=== PATIENT | female | born 1950 | race Caucasian/White ===

== ENCOUNTER → 2016-10-27 | Outpatient (CLI) | payer OTHER ==
[~2016-10-27] MED LIST: ACTOS15 MG; ALPR0.5T7 PO; ALPR0.5T72; ASCO-262 PO; ASP325T; ASPI-808 PO; ASPI-999 PO; CALC-17 PO; CIPR-225 PO; CPR500T PO; DICY20TA57 PO; DOCU-143 PO; DULO30CA; FURO40TA4; HYDR-3812 PO; HYOS0.1217 PO; LEVO500T2 PO; LISI20TA PO; METO100T5 PO; METR500T PO; MICO1KIT8 VG; MTF500T PO; MULT-963 PO; POTA20PA3; PREG100C22 PO; PRM25T PO; SIMV20TA3 PO; TPR25T PO; ZOLP5TAB6 PO
[2016-10-27 15:30] LABS: BASOPHILS % (AUTO) 0 % (0-10); EOSINOPHILS % (AUTO) 0 % (0-10); LYMPHOCYTES # (AUTO) 1.6 X 10^3 (1.0-4.0); LYMPHOCYTES % (AUTO) 15 % (12-44); MEAN CORPUSCULAR HEMOGLOBIN 30 PG (25-34); MEAN CORPUSCULAR HGB CONC 32 G/DL (32-36); MEAN CORPUSCULAR VOLUME 93 FL (80-99); MEAN PLATELET VOLUME 10.8 FL (7.4-10.4); MONOCYTES # (AUTO) 0.6 X 10^3 (0.0-1.0); MONOCYTES % (AUTO) 6 % (0-12); NEUTROPHILS # (AUTO) 8.6 X 10^3 (1.8-7.8); NEUTROPHILS % (AUTO) 80 % (42-75); PLATELET COUNT 317 10^3/uL (130-400); RED BLOOD COUNT 4.71 10^6/uL (4.35-5.85); RED CELL DISTRIBUTION WIDTH 13.6 % (10.0-14.5); WHITE BLOOD COUNT 10.9 10^3/uL (4.3-11.0)
[2016-10-27 16:02] LABS: ERYTHROCYTE SEDIMENTATION RATE 12 MM/HR (0-30)
== END ==
LOC: LAB 13:04
PROVIDERS: ATTEND Podiatrist Foot & Ankle Surgery
DX: R60.9 Edema, unspecified (principal); R52 Pain, unspecified
CPT/HCPCS: 36415; 82607; 84550; 85025; 85652; 86038; 86430

== ENCOUNTER → 2016-12-31 | Outpatient (CLI) | payer OTHER ==
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
--- NOTE | 2016-12-31 11:45 | Diagnostic Imaging Report ---
Two views of the left hip. INDICATION: Left hip pain. FINDINGS: There is mild subchondral sclerosis seen in the left hip. Mild subchondral sclerosis also in the left SI joint is seen with inferior spurring noted. There is ossification near the tendinous insertion along the greater trochanters. No acute fractures. IMPRESSION: Degenerative changes. No acute process. Dictated by: Dictated on workstation # [id number]
--- NOTE | 2016-12-31 11:51 | Diagnostic Imaging Report ---
Five views of the lumbar spine. INDICATION: Left hip pain and back pain. FINDINGS: There is a grade 1 spondylolisthesis of L4 over L5. No associated pars defect or fracture is evident on the oblique views, although the evaluation is somewhat limited by the adjacent sclerotic degenerative changes around the lower lumbar spine facet joints. The vertebral body heights are preserved. There is mild disc height loss at the L4/L5 level. Mild anterior osteophytes around the mid lumbar spine is seen. No posterior osteophytes are evident. There are ysgo-ut-[id number] degenerative changes in the SI joints. Calcifications in the pelvis suggestive of phleboliths seen. Surgical clips in the right side of the pelvis and in the upper right abdomen are seen. IMPRESSION: Grade 1 spondylolisthesis of L4 over L5 associated with disc height loss is seen. There are also degenerative sclerotic changes in the lower lumbar spine facet joints. Dictated by: Dictated on workstation # [id number]
== END ==
LOC: RAD 11:01
PROVIDERS: ATTEND Nurse Practitioner Adult Health
DX: S09.90XA Unspecified injury of head, initial encounter (principal); M16.12 Unilateral primary osteoarthritis, left hip; M43.16 Spondylolisthesis, lumbar region; R11.10 Vomiting, unspecified; R51 Headache; X58.XXXA Exposure to other specified factors, initial encounter; Y99.8 Other external cause status
CPT/HCPCS: 70450; 72110; 73502

== ENCOUNTER 2017-02-23 03:51 | Emergency (ER) | payer OTHER ==
[~2017-02-23] VITALS: Ht 162.6 cm; Wt 127.0 kg
[2017-02-23] MEDS ORDERED: LACTATED RINGERS 1,000 ML IV ONE (04:10)
[2017-02-23] MEDS ORDERED: KETOROLAC 30 MG/ML VIAL IVP STA (04:10)
[2017-02-23] MEDS ORDERED: ONDANSETRON 4 MG/2 ML (SDV) Z0FRAN IVP ONE (04:15)
[2017-02-23 04:16] LABS: BILIRUBIN,URINE NEGATIVE (NEGATIVE); KETONES,URINE NEGATIVE (NEGATIVE); LEUKOCYTE ESTERASE ,URINE 3+ (NEGATIVE); NITRITE,URINE NEGATIVE (NEGATIVE); PH,URINE 8 (5-9); PROTEIN,URINE NEGATIVE (NEGATIVE); UROBILINOGEN,URINE NORMAL (NORMAL)
[2017-02-23 04:25] LABS: BASOPHILS # (AUTO) 0.1 10^3/uL (0.0-0.1); BASOPHILS % (AUTO) 1 % (0-10); EOSINOPHILS # (AUTO) 0.1 10^3/uL (0.0-0.3); EOSINOPHILS % (AUTO) 1 % (0-10); LYMPHOCYTES # (AUTO) 1.2 X 10^3 (1.0-4.0); LYMPHOCYTES % (AUTO) 11 % (12-44); MEAN CORPUSCULAR HEMOGLOBIN 30 PG (25-34); MEAN CORPUSCULAR HGB CONC 32 G/DL (32-36); MEAN CORPUSCULAR VOLUME 93 FL (80-99); MEAN PLATELET VOLUME 10.4 FL (7.4-10.4); MONOCYTES # (AUTO) 0.8 X 10^3 (0.0-1.0); MONOCYTES % (AUTO) 7 % (0-12); NEUTROPHILS # (AUTO) 8.9 X 10^3 (1.8-7.8); NEUTROPHILS % (AUTO) 81 % (42-75); PLATELET COUNT 234 10^3/uL (130-400); RED BLOOD COUNT 4.77 10^6/uL (4.35-5.85); RED CELL DISTRIBUTION WIDTH 13.3 % (10.0-14.5); WHITE BLOOD COUNT 10.9 10^3/uL (4.3-11.0)
[2017-02-23 04:25] LABS: WBC,URINE 0-2 /HPF
[2017-02-23 04:26] LABS: SQUAMOUS EPITHELIAL CELL,UR RARE /HPF
--- NOTE | 2017-02-23 04:28 | ED Abdominal Pain ---
General Chief Complaint: Abdominal/GI Problems Stated Complaint: ABD PAIN,RT SIDE TO BACK,POSS KIDNEY STONES Source of Information: Patient History of Present Illness Time Seen By Provider: 04:10 Initial Comments PT ARRIVES VIA POV IN AN ELECTRIC WHEELCHAIR FROM HOME C/O SUDDEN ONSET OF DIFFUSE LOWER ABDOMINAL PAIN--WORSE ON RIGHT SIDE-- RADIATING TO RIGHT FLANK. PAIN BEGAN AT 2100 TONIGHT WHILE LAYING ON COUCH + NAUSEA, NO VOMITING NO FEVER NO URINARY SYMPTOMS HAD NORMAL BM X 3 SYMPTOMS WORSE WITH LAYING DOWN. NOTHING IMPROVES PAIN HAS NOT TAKEN ANYTHING FOR PAIN HAS HISTORY OF UTI'S AND KIDNEY STONES, BUT THIS IS NOT EXACTLY THE SAME WHEN SHE HAS HAD KIDNEY STONE IN THE PAST. PCP: DR. IYER/[facility] UROLOGIST: VIDAL COLES Allergies and Home Medications Allergies Coded Allergies: codeine (Unverified Adverse Reaction, Intermediate, 10/08/12) Home Medications Alprazolam 0.5 Mg Tablet, 0.5 MG PO TID PRN for ANXIETY, (Reported) Ascorbate Calcium 500 Mg Tablet, 500 MG PO BID, (Reported) Aspirin 81 Mg Tab.chew, 81 MG PO, (Reported) Calcium/Magnesium/Zinc 1 Each Tablet, 1 TAB PO DAILY, (Reported) Ciprofloxacin HCl 500 Mg Tablet, 500 MG PO BID, #14 Prescribed by: JESSI CASTRO on 02/14/161536 Ciprofloxacin HCl 500 Mg Tablet, 500 MG PO BID, #20 Prescribed by: SHERI GLASS on 02/23/1722 Docusate Sodium 100 Mg Capsule, 100 MG PO BID, #60 Prescribed by: JESSI CASTRO on 02/14/161536 Hydrocodone/Acetaminophen 1 Each Tablet, 1 EACH PO Q4H PRN for PAIN, #30 Prescribed by: JESSI CASTRO on 02/14/161536 Hydrocodone/Ibuprofen 1 Each Tablet, 1-2 EACH PO Q4H, #20 Prescribed by: SHERI GLASS on 02/23/1722 Lisinopril 20 Mg Tablet, 20 MG PO DAILY, (Reported) Metformin Hcl 500 Mg Tablet, 500 MG PO BID WITH MEALS, (Reported) Metoprolol Succinate 100 Mg Tab.sr.24h, 50 MG PO DAILY, (Reported) Metronidazole 500 Mg Tablet, 500 MG PO TID, #21 Prescribed by: JESSI CASTRO on 02/14/16 1537 Multivitamin 1 Each Tablet, 1 TAB PO DAILY, (Reported) Ondansetron 4 Mg Tab.rapdis, 4 MG PO Q4H, #10 Prescribed by: SHERI GLASS on 02/23/17521 Pregabalin 100 Mg Capsule, 100 MG PO BID, (Reported) Promethazine Hcl 25 Mg Tablet, 25 MG PO Q6H PRN for NAUSEA/VOMITING, (Reported) Simvastatin 20 Mg Tablet, 20 MG PO HS, (Reported) Tamsulosin HCl 0.4 Mg Cap, 0.4 MG PO DAILY, #10 Prescribed by: SHERI GLASS on 02/23/17 0522 Topiramate 25 Mg Tab, 75 MG PO DAILY, (Reported) TAKES 3 (25 MG) TABLETS Review of Systems Constitutional: no symptoms reported Respiratory: No Symptoms Reported Cardiovascular: No Symptoms Reported Gastrointestinal: See HPI, Abdominal Pain, Denies Constipated, Denies Diarrhea , Nausea, Denies Vomiting Genitourinary: Flank Pain Musculoskeletal: see HPI, back pain Skin: no symptoms reported Psychiatric/Neurological: No Symptoms Reported Endocrine: No Symptoms Reported Past Dmzyagx-Soecol-Jtpxnf Hx Patient Social History Alcohol Use: Denies Use Recreational Drug Use: No Smoking Status: Never a Smoker Recent Foreign Travel: No Contact w/Someone Who Travel: No Recent Hopitalizations: Yes ( 2016- KIDNEY INFECTION AND ECHOLI. ) Immunizations Up To Date Tetanus Booster (TDap): Unknown Date of Influenza Vaccine: Apr 20, 2015 Seasonal Allergies Seasonal Allergies: No Surgeries History of Surgeries: Yes (HYST/BSO; CARDIAC CATH--NO INTERVENTION; ECTOPIC X 2 ; LITHOTRIPSY) Surgeries: Appendectomy, Gallbladder, Hysterectomy, Oophorectomy, Renal Respiratory History of Respiratory Disorde: Yes Respiratory Disorders: Chronic Bronchitis, Sleep Apnea Cardiovascular History of Cardiac Disorders: Yes (CARDIAC CATH--NO INTERVENTION; CHF) Cardiac Disorders: Atrial Fibrillation, High Cholesterol, Hypertension Neurological History of Neurological Disord: Yes Neurological Disorders: Headaches /Migraines 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 System Hx 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 Disorders: 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 X 2) 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, Menopausal Genitourinary History of Genitourinary Disor: Yes Genitourinary Disorders: Kidney Infection, Bladder Infection, Kidney Stones Gastrointestinal History of Gastrointestinal Di: Yes (INCIDIENTAL FINDING OF DIVERTICULOSIS FOUND ON CT--NO HX OF ACUTE DIVERTICULITIS) Gastrointestinal Disorders: Gastroesophageal Reflux, Diverticulosis, Gall Bladder Disease Musculoskeletal History of Musculoskeletal Dis: Yes (FREQUENT FALLS, "BAD KNEES" AND USES ELECTRIC WHEELCHAIR FOR AMBULATION) Musculoskeletal Disorders: Arthritis, Fibromyalgia Endocrine History of Endocrine Disorders: Yes (MORBID OBESITY) Endocrine Disorders: Diabetes, Non-Insulin dep HEENT History of HEENT Disorders: No Cancer History of Cancer: No Psychosocial History of Psychiatric Problem: Yes Behavioral Health Disorders: Anxiety, Bipolar, Depression Integumentary History of Skin or Integumenta: No Blood Transfusions History of Blood Disorders: No Family Medical History Significant Family History: No Pertinent Family Hx Family Medial History: Arthritis 19 MOTHER Cardiovascular disease 19 FATHER Diabetes mellitus 19 FATHER G8 BROTHER Hypercholesterolemia 19 MOTHER Hypertension 19 FATHER 19 MOTHER Kidney disease 19 MOTHER Myocardial infarction 19 FATHER Physical Exam Vital Signs VS - Last 72 Hours, by Label 02/23/17 02/23/17 03:56 04:34 Temp 97.7 97.7 Pulse 70 Resp 20 B/P (MAP) 150/114 Pulse Ox 99 O2 Delivery Room Air Capillary Refill : General Appearance: no apparent distress, obese, other (SOMEWHAT FLAT AFFECT. DOES NOT APPEAR TO BE IN ANY DISCOMFORT ) Respiratory: normal breath sounds, no respiratory distress, no accessory muscle use Cardiovascular: regular rate, rhythm, no murmur Gastrointestinal: soft, no organomegaly, tenderness (MILD DIFFUSE LOWER ABDOMINAL TENDERNESS AND RIGHT FLANK TENDERNESS) Extremities: normal inspection, normal capillary refill Back: CVA tenderness (R) Neurologic/Psychiatric: speech therapy teacher II-XII nml as tested, no motor/sensory deficits, alert, oriented x 3 Skin: normal color, warm/dry Progress/Results/Core Measures Results/Orders Lab Results Laboratory Tests Test 02/23/17 04:02 02/23/17 04:17 Range/Units Urine Color YELLOW Urine Clarity VERY CLOUDY H Urine pH 8 5-9 Urine Specific [place] 1.015 L 1.016-1.022 Urine Protein NEGATIVE NEGATIVE Urine Glucose (UA) NEGATIVE NEGATIVE Urine Ketones NEGATIVE NEGATIVE Urine Nitrite NEGATIVE NEGATIVE Urine Bilirubin NEGATIVE NEGATIVE Urine Urobilinogen NORMAL NORMAL MG/DL Urine Leukocyte Esterase 3+ H NEGATIVE Urine RBC (Auto) 1+ H NEGATIVE Urine RBC 0-2 /HPF Urine WBC 0-2 /HPF Urine Squamous Epithelial Cells RARE /HPF Urine Crystals PRESENT H /LPF Urine Amorphous Sediment LARGE CHASTITY PHOSPHATE H /LPF Urine Bacteria TRACE /HPF Urine Casts NONE /LPF Urine Mucus NEGATIVE /LPF Urine Culture Indicated NO White Blood Count 10.9 4.3-11.0 10^3/uL Red Blood Count 4.77 4.35-5.85 10^6/uL Hemoglobin 14.3 11.5-16.0 G/DL Hematocrit 44 35-52 % Mean Corpuscular Volume 93 80-99 FL Mean Corpuscular Hemoglobin 30 25-34 PG Mean Corpuscular Hemoglobin Concent 32 32-36 G/DL Red Cell Distribution Width 13.3 10.0-14.5 % Platelet Count 234 130-400 10^3/uL Mean Platelet Volume 10.4 7.4-10.4 FL Neutrophils (%) (Auto) 81 H 42-75 % Lymphocytes (%) (Auto) 11 L 12-44 % Monocytes (%) (Auto) 7 0-12 % Eosinophils (%) (Auto) 1 0-10 % Basophils (%) (Auto) 1 0-10 % Neutrophils # (Auto) 8.9 H 1.8-7.8 X 10^3 Lymphocytes # (Auto) 1.2 1.0-4.0 X 10^3 Monocytes # (Auto) 0.8 0.0-1.0 X 10^3 Eosinophils # (Auto) 0.1 0.0-0.3 10^3/uL Basophils # (Auto) 0.1 0.0-0.1 10^3/uL Sodium Level 140 135-145 MMOL/L Potassium Level 4.5 3.6-5.0 MMOL/L Chloride Level 107 98-107 MMOL/L Carbon Dioxide Level 23 21-32 MMOL/L Anion Gap 10 5-14 MMOL/L Blood Urea Nitrogen 26 H 7-18 MG/DL Creatinine 1.29 0.60-1.30 MG/DL Estimat Glomerular Filtration Rate 42 BUN/Creatinine Ratio 20 Glucose Level 123 H 70-105 MG/DL Calcium Level 9.1 8.5-10.1 MG/DL Total Bilirubin 0.4 0.1-1.0 MG/DL Aspartate Amino Transf (AST/SGOT) 17 5-34 U/L Alanine Aminotransferase (ALT/SGPT) 12 0-55 U/L Alkaline Phosphatase 49 40-136 U/L Total Protein 6.2 L 6.4-8.2 GM/DL Albumin 3.8 3.2-4.5 GM/DL Amylase Level 38 25-125 U/L Lipase 80 H 8-78 U/L My Orders Orders - SHERI GLASS DO Ct Abd/Pelvis Wo(Kidney Stone) (02/23/17 04:10) Amylase (02/23/17 04:10) Cbc With Automated Diff (02/23/17 04:10) Comprehensive Metabolic Panel (02/23/17 04:10) Lipase (02/23/17 04:10) Ua Culture If Indicated (02/23/17 04:10) Acute Abd Series (02/23/17 04:10) Saline Lock/Iv-Start (02/23/17 04:10) Ondansetron Injection (Zofran Injectio (02/23/17 04:15) Saline Lock/Iv-Start (02/23/17 04:10) Lactated Ringers (Lr 1000 Ml Iv Solution (02/23/17 04:10) Ketorolac Injection (Toradol Injection) (02/23/17 04:10) Alfuzosin Tablet (Uroxatral Tablet) (02/23/17 05:30) Rx-Ondansetron Po (Rx-Zofran Po) (02/23/17 05:16) Rx-Hydrocodone/Apap 5-325 Mg (Rx-Vicodin (02/23/17 05:30) Levofloxacin Tablet (Levaquin Tablet) (02/23/17 05:30) Medications Given in ED Current Medications Medications Dose Ordered Sig/Gerardo Route Start Time Stop Time Status Last Admin Dose Admin Lactated Ringer's 1,000 ml @ 0 mls/hr Q0M ONCE IV 02/23/17 04:10 02/23/17 04:13 DC 02/23/17 04:34 999 MLS/HR Ondansetron HCl 4 mg ONCE ONCE IVP 02/23/17 04:15 02/23/17 04:16 DC 02/23/17 04:34 4 MG Vital Signs/I&O Vital Sign - Last 12Hours 02/23/17 02/23/17 03:56 04:34 Temp 97.7 97.7 Pulse 70 Resp 20 B/P (MAP) 150/114 Pulse Ox 99 O2 Delivery Room Air Progress Note : Progress Note PAIN AND NAUSEA EASED WITH MEDICATIONS Diagnostic Imaging Comments ACUTE ABDOMEN XRAYS--NO ACUTE PROCESS, PENDING RADIOLOGIST REVIEW CT ABDOMEN/PELVIS--4 MM RIGHT PROXIMAL URETERAL STONE WITH MILD/MODERATE HYDRONEPHROSIS WITH PERINEPHRIC FAT STRANDING. DIVERTICULOSIS-NO ACUTE DIVERTICULITIS--PER [facility] VIA FAX @ [id number] Reviewed: Reviewed by Me Departure Impression Impression: Primary Impression: Calculus of proximal right ureter Disposition: HOME, SELF-CARE Condition: Improved Departure-Patient Inst. Referrals: GÓMEZ LI MD (PCP/Family) Primary Care Physician Patient Instructions: Kidney Stones (DC) Add. Discharge Instructions: STRAIN ALL URINE--RETURN ANY STONES TO YOUR UROLOGIST'S OFFICE LOTS OF CLEAR LIQUIDS FOLLOW UP WITH DR. PANDEY THIS WEEK FOR FURTHER CARE--CALL TODAY FOR APPOINTMENT. BRING COPIES OF CT SCAN AND XRAYS WITH YOU RETURN TO ER IF WORSE All discharge instructions reviewed with patient and/or family. Voiced understanding. Scripts Tamsulosin HCl (Flomax) 0.4 Mg Cap 0.4 MG PO DAILY, #10 CAP Prov: SHERI GLASS K DO 02/23/17 Hydrocodone/Ibuprofen (Hydrocodone-Ibuprofen 7.5-200) 1 Each Tablet 1-2 EACH PO Q4H for Pain, #20 TAB Prov: ENRRIQUE GLASSA K DO 02/23/17 Ondansetron (Zofran Odt) 4 Mg Tab.rapdis 4 MG PO Q4H for Nausea/Vomiting, #10 TAB Prov: SHERI GLASS K DO 02/23/17 Ciprofloxacin HCl (Cipro) 500 Mg Tablet 500 MG PO BID, #20 TAB Prov: ENRRIQUE GLASSA K DO 02/23/17 SHERI GLASS DO Feb 23, 2017 04:27
[2017-02-23 04:45] LABS: ALBUMIN 3.8 GM/DL (3.2-4.5); BILIRUBIN,TOTAL 0.4 MG/DL (0.1-1.0); CALCIUM 9.1 MG/DL (8.5-10.1); CREATININE SERUM 1.29 MG/DL (0.60-1.30); POTASSIUM 4.5 MMOL/L (3.6-5.0); TOTAL PROTEIN 6.2 GM/DL (6.4-8.2)
[2017-02-23] MEDS ORDERED: RX-ONDANSETRON 4 MG ODT (ZOFRAN) PPK #4 PO STA (05:16)
[2017-02-23] MEDS ORDERED: CIPR-225 PO (05:22)
[2017-02-23] MEDS ORDERED: TAMS0.4C98 PO (05:22)
[2017-02-23] MEDS ORDERED: HYDR-87 PO (05:22)
[2017-02-23] MEDS ORDERED: ONDA4TAB8 PO (05:22)
[2017-02-23] MEDS ORDERED: LEVOFLOXACIN 500 MG TAB (LEVAQUIN) PO ONE (05:30)
[2017-02-23] MEDS ORDERED: RX-HYDROCODONE/APAP 5/325 MG #4 TAB PK PO PRN (05:30)
[2017-02-23] MEDS ORDERED: ALFUZOSIN HCL 10 MG TAB (UROXATRAL) PO SCH (05:30)
[2017-02-23 05:40] VITALS: BP 139/70
--- NOTE | 2017-02-23 06:13 | Diagnostic Imaging Report ---
INDICATION: Right flank pain. COMPARISON: CT abdomen and pelvis from the same day FINDINGS: Supine and upright views of the abdomen show a nondistended bowel gas pattern. No abnormal air fluid levels or free intraperitoneal air is seen. Patient's known right-sided renal calculi are essentially inconspicuous on this exam. There is a subtle punctate extraosseous calcification projecting over the lateral margins of the psoas muscle at the L2-L3 intervertebral disc space level, which may correspond to ureteral calculus seen on separately performed CT abdomen. Bony and soft tissue structures are within normal limits. No organomegaly is identified. Accompanying upright chest shows normal heart size and pulmonary vascularity. The lungs are well aerated and clear. The mediastinum is normal in appearance. IMPRESSION: 1. Punctate extraosseous calcification overlying the right psoas muscle as described above. This may correspond to patient's known ureteral calculus. Right-sided renal calculi remain inconspicuous. 2. Normal chest. No pneumonia or pulmonary edema. Dictated by: Dictated on workstation # [id number]
--- NOTE | 2017-02-23 06:45 | Diagnostic Imaging Report ---
PROCEDURE: CT urinary tract, rule out kidney stone. TECHNIQUE: Multiple contiguous axial images were obtained through the abdomen and pelvis without the use of intravenous contrast. INDICATION: Right flank pain. COMPARISON: 02/14/2016. FINDINGS: Included portions of the lung bases are clear. Note is made of moderate calcified coronary artery atherosclerosis. CT abdomen: Small 4-mm calculus is identified within the proximal right ureter near the UPJ. As a result, there is moderate proximal hydronephrosis. Multiple additional nonobstructive renal calculi are also seen within the inferior pole on the right. There is also asymmetric stranding of the perirenal fat on the right. No renal or ureteral calculi are seen on the left. Additionally, there is no hydroureteronephrosis or other evidence of obstruction on the left. No renal parenchymal mass-type lesions are seen on this noncontrast exam. The liver, spleen, pancreas, and adrenal glands have an unremarkable noncontrast CT appearance. Small bowel loops are nondistended. Normal appendix cannot be adequately identified but appears to be surgically absent. There is no loculated fluid collection, free fluid, or free air within the abdomen. There is mild/ moderate calcified aortic and arterial atherosclerosis. Bony structures show no acute abnormalities. CT pelvis: Urinary bladder is unopacified and essentially decompressed. No calculi are seen within the urinary bladder. There is colonic diverticulosis but no CT evidence of acute diverticulitis. Low-density rounded structure is identified in the right adnexa and measures 3.5 x 4.1 cm. This is stable when compared to 02/14/2016. There is no loculated fluid collection, free fluid, or free air within the pelvis. No abnormal lymph nodes are seen. Bony structures show no acute abnormalities. IMPRESSION: 1. A 4-mm calculus within the proximal right ureter near the UVJ resulting in moderate proximal hydronephrosis. 2. Multiple additional nonobstructive right renal calculi. 3. Colonic diverticulosis but no CT evidence of acute diverticulitis. 4. Stable probable cystic structure in the right adnexa. This may be ovarian in nature. Given patient's likely postmenopausal status, further characterization with dedicated pelvic sonogram is recommended and could be performed on a nonemergent basis. Dictated by: Dictated on workstation # [id number]
== END 2017-02-23 05:40 | disposition home or self-care (01) ==
LOC: EDUNIT# 03:51 → ER 03:56
DX: N20.1 Calculus of ureter (principal); G47.30 Sleep apnea, unspecified; I11.0 Hypertensive heart disease with heart failure; I50.9 Heart failure, unspecified; I48.91 Unspecified atrial fibrillation; E78.00 Pure hypercholesterolemia, unspecified; G43.909 Migraine, unspecified, not intractable, without status migrainosus; K21.9 Gastro-esophageal reflux disease without esophagitis; M19.90 Unspecified osteoarthritis, unspecified site; E66.01 Morbid (severe) obesity due to excess calories; E11.9 Type 2 diabetes mellitus without complications; F41.9 Anxiety disorder, unspecified; F31.9 Bipolar disorder, unspecified; Z87.19 Personal history of other diseases of the digestive system; Z87.440 Personal history of urinary (tract) infections; Z87.442 Personal history of urinary calculi; Z79.82 Long term (current) use of aspirin; Z90.710 Acquired absence of both cervix and uterus; Z82.49 Family history of ischemic heart disease and other diseases of the circulatory system
CPT/HCPCS: 36415; 74022; 74176; 80053; 81000; 82150; 83690; 85025; 96361; 96374; 96375

== ENCOUNTER → 2017-08-18 | Outpatient (CLI) | payer OTHER ==
[~2017-08-18] MED LIST changes: +ACHD5005 PO; -HYDR-3812 PO; +HYDR-87 PO; +ONDA4TAB8 PO; +TAMS0.4C98 PO
[2017-08-18 11:16] LABS: ALANINE AMINOTRANSFERASE 19 U/L (0-55); ALBUMIN 3.6 GM/DL (3.2-4.5); ALKALINE PHOSPHATASE 40 U/L (40-136); BILIRUBIN,TOTAL 0.4 MG/DL (0.1-1.0); BUN/CREATININE RATIO 30; CALCIUM 8.9 MG/DL (8.5-10.1); CARBON DIOXIDE 20 MMOL/L (21-32); CHLORIDE 107 MMOL/L (98-107); CHOLESTEROL 204 MG/DL (< 200); CREATININE SERUM 0.82 MG/DL (0.60-1.30); GFR ESTIMATED > 60; GLUCOSE 110 MG/DL (70-105); HDL CHOLESTEROL 35 MG/DL (40-60); POTASSIUM 4.4 MMOL/L (3.6-5.0); SODIUM 139 MMOL/L (135-145); TOTAL PROTEIN 5.9 GM/DL (6.4-8.2); TRIGLYCERIDES 159 MG/DL (<150); VLDL CHOLESTEROL 32 MG/DL (5-40)
== END ==
LOC: CARD 09:53
PROVIDERS: ATTEND Internal Medicine Cardiovascular Disease
DX: I48.91 Unspecified atrial fibrillation (principal); E11.9 Type 2 diabetes mellitus without complications; E78.5 Hyperlipidemia, unspecified; I10 Essential (primary) hypertension; R00.2 Palpitations
CPT/HCPCS: 36415; 80053; 80061; 93306

== ENCOUNTER 2017-11-24 18:53 | Observation (INO) | payer MEDICARE, OTHER ==
[~2017-11-24] VITALS: Ht 162.6 cm; Wt 128.0 kg
[2017-11-24] MEDS ORDERED: ASPIRIN 81 MG CHEW (CHILDREN'S ASA) PO ONE (19:00)
[2017-11-24 19:23] LABS: BASOPHILS % (AUTO) 1 % (0-10); EOSINOPHILS # (AUTO) 0.1 10^3/uL (0.0-0.3); EOSINOPHILS % (AUTO) 2 % (0-10); HEMATOCRIT 44 % (35-52); HEMOGLOBIN 14.3 G/DL (11.5-16.0); LYMPHOCYTES % (AUTO) 35 % (12-44); MEAN CORPUSCULAR HEMOGLOBIN 30 PG (25-34); MEAN CORPUSCULAR HGB CONC 33 G/DL (32-36); MEAN CORPUSCULAR VOLUME 91 FL (80-99); MEAN PLATELET VOLUME 10.3 FL (7.4-10.4); MONOCYTES # (AUTO) 0.8 X 10^3 (0.0-1.0); MONOCYTES % (AUTO) 9 % (0-12); NEUTROPHILS # (AUTO) 4.6 X 10^3 (1.8-7.8); NEUTROPHILS % (AUTO) 54 % (42-75); PLATELET COUNT 272 10^3/uL (130-400); RED BLOOD COUNT 4.78 10^6/uL (4.35-5.85); RED CELL DISTRIBUTION WIDTH 13.8 % (10.0-14.5); WHITE BLOOD COUNT 8.6 10^3/uL (4.3-11.0)
--- NOTE | 2017-11-24 19:26 | Diagnostic Imaging Report ---
INDICATION: Chest pain. Comparison with 02/23/2017. FINDINGS: Portable chest is well-aerated. There are no infiltrates or masses. Heart is not enlarged. No pulmonary edema. No hilar adenopathy. No pneumothorax or pleural effusion. IMPRESSION: Normal portable chest. Dictated by: Dictated on workstation # [id number]
--- NOTE | 2017-11-24 19:28 | ED Cardiac General ---
History of Present Illness General Chief Complaint: Cardiac/General Problems Stated Complaint: AFIB Nursing Triage Note: patient reports palpitations. patient reports putting a pulse ox on her finger and her HR was ranging between 40 and 80. Patient reports being evaluated by PCP today Source: patient History of Present Illness Date Seen by Provider: Nov 24, 2017 Time Seen by Provider: 18:50 Initial Comments PT ARRIVES VIA POV, IN AN ELECTRIC SCOOTER PT STATES SHE HAS BEEN HAVING PALPITATIONS FOR THE LAST HOUR STATES SHE PUT A PULSE OX ON HER FINGER AND IT READ THAT HER HEART RATE WAS IN THE 40'S STATES SHE HAS INTERMITTENT ATRIAL FIBRILLATION AND USUALLY WHEN SHE GOES INTO A FIB, HER HEART RATE GOES UP--HER HEART RATE HAS NEVER DROPPED LIKE THIS BEFORE UNDERLYING HEART RATE IS IN 80'S STATES WHEN SHE STARTS HAVING THE PALPITATIONS, AND THEN SHE WILL FEEL A FLUTTERING IN HER THROAT AND THEN SHE WILL COUGH AND THAT WILL STOP THE PALPITATIONS. SHE STATES THIS IS THE SAME THING THAT HAS HAPPENED BEFORE SHE GOES INTO ATRIAL FIBRILLATION, BUT HER HEART RATE NEVER WENT FAST AND SHE DOES NOT FEEL LIKE SHE HAS GONE INTO ATRIAL FIBRILLATION TONIGHT + SHORTNESS OF BREATH NO ACTUAL CHEST PAIN NO SWELLING IN LEGS/FEET NO SWEATS NO DIZZINESS NO SYNCOPE OR NEAR-SYNCOPE NO FEVER, COUGH/URI SYMPTOMS OR RECENT ILLNESS NO MEDICATION CHANGES OR MISSED DOSES OF MEDICATIONS PT IS NOT ON ANY ANTI-ARRHYTHMICS--TAKES A BETA MARCELINO PT TAKES ASPIRIN 325 MG, AND IS NOT ON ANY OTHER ANTICOAGULANTS SAW DR. HUDDLESTON, AT [facility] IN [place] TODAY FOR ROUTINE FOLLOW UP ON A RASH THAT SHE HAD, HAS SINCE CLEARED UP. WAS ON PREDNISONE, BUT FINISHED THAT OVER A WEEK AGO. PCP: DR. HUDDLESTON, [facility] SAW TAILER: DR. WALDROP Allergies and Home Medications Allergies Coded Allergies: codeine (Unverified Adverse Reaction, Intermediate, 10/08/12) Home Medications Alprazolam 0.5 Mg Tablet, 0.5 MG PO TID PRN for ANXIETY, (Reported) Ascorbate Calcium 500 Mg Tablet, 500 MG PO BID, (Reported) Calcium/Magnesium/Zinc 1 Each Tablet, 1 TAB PO DAILY, (Reported) Docusate Sodium 100 Mg Capsule, 100 MG PO BID Prescribed by: JESSI CASTRO on 02/14/16 9957 Lisinopril 20 Mg Tablet, 20 MG PO DAILY, (Reported) Metformin Hcl 500 Mg Tablet, 500 MG PO BID WITH MEALS, (Reported) Metoprolol Succinate 100 Mg Tab.sr.24h, 50 MG PO DAILY, (Reported) Multivitamin 1 Each Tablet, 1 TAB PO DAILY, (Reported) Pregabalin 100 Mg Capsule, 100 MG PO BID, (Reported) Simvastatin 20 Mg Tablet, 20 MG PO HS, (Reported) Topiramate 25 Mg Tab, 75 MG PO DAILY, (Reported) TAKES 3 (25 MG) TABLETS Patient Home Medication List Home Medication List Reviewed: Yes Review of Systems Constitutional: No diaphoresis, No dizziness Respiratory: See HPI Cardiovascular: See HPI Gastrointestinal: No Symptoms Reported Genitourinary: No Symptoms Reported Musculoskeletal: no symptoms reported Skin: no symptoms reported Psychiatric/Neurological: No Symptoms Reported Endocrine: No Symptoms Reported Hematologic/Lymphatic: No Symptoms Reported Past Knhjezq-Ysmndv-Yshvdj Hx Patient Social History Alcohol Use: Denies Use Recreational Drug Use: No Smoking Status: Never a Smoker 2nd Hand Smoke Exposure: No Recent Foreign Travel: No Contact w/Someone Who Travel: No Recent Infectious Disease Expo: No Recent Hopitalizations: No Immunizations Up To Date Tetanus Booster (TDap): Unknown Date of Influenza Vaccine: Apr 20, 2015 Seasonal Allergies Seasonal Allergies: Yes Past Medical History Surgeries: Yes (HYST/BSO; CARDIAC CATH--NO INTERVENTION; ECTOPIC X 2; LITHOTRIPSY; EGD/COLONOSCOPY) Appendectomy, Gallbladder, Hysterectomy, Oophorectomy, Renal Respiratory: Yes Chronic Bronchitis, Sleep Apnea Cardiac: Yes (CARDIAC CATH--NO INTERVENTION; CHF; INTERMITTENT ATRIAL FIB) Atrial Fibrillation, High Cholesterol, Hypertension Neurological: Yes Headaches /Migraines 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 Disorders: 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 X 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, 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 Genitourinary: Yes Kidney Infection, Bladder Infection, Kidney Stones Gastrointestinal: Yes (INCIDENTAL FINDING OF DIVERTICULOSIS ON CT-NO HX OF ACUTE DIVERTICULITIS) Gastroesophageal Reflux, Diverticulosis, Esophagitis, Gall Bladder Disease Musculoskeletal: Yes (FREQUENT FALLS, "BAD KNEES" AND USES ELECTRIC WHEELCHAIR FOR AMBULATION) Arthritis, Fibromyalgia Endocrine: Yes (MORBID OBESITY) Diabetes, Non-Insulin dep HEENT: No Cancer: No Psychosocial: Yes Anxiety, Bipolar, Depression Integumentary: No Blood Disorders: No Family Medical History Arthritis 19 MOTHER Cardiovascular disease 19 FATHER Diabetes mellitus 19 FATHER G8 BROTHER Hypercholesterolemia 19 MOTHER Hypertension 19 FATHER 19 MOTHER Kidney disease 19 MOTHER Myocardial infarction 19 FATHER No Pertinent Family Hx Physical Exam Vital Signs Vital Signs - First Documented 6/7/18 18:59 Temp 98.2 Pulse 84 Resp 18 B/P (MAP) 195/130 (151) Pulse Ox 98 O2 Delivery Room Air Capillary Refill : Less Than 3 Seconds General Appearance: No Apparent Distress, Anxious, Obese Neck: Normal Inspection; No Carotid Bruit, No JVD Respiratory: Normal Breath Sounds, No Accessory Muscle Use, No Respiratory Distress Cardiovascular: Regular Rate, Rhythm, No Edema, No JVD, No Murmur, Normal Peripheral Pulses Gastrointestinal: Non Tender, Soft Extremity: Normal Capillary Refill, Normal Inspection, Normal Range of Motion, Non Tender, No Calf Tenderness, No Pedal Edema Neurologic/Psychiatric: Alert, Oriented x3, No Motor/Sensory Deficits, 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 Norm as Tested Skin: Normal Color, Warm/Dry Progress/Results/Core Measures Results/Orders Lab Results Laboratory Tests Test 11/24/17 19:15 Range/Units White Blood Count 8.6 4.3-11.0 10^3/uL Red Blood Count 4.78 4.35-5.85 10^6/uL Hemoglobin 14.3 11.5-16.0 G/DL Hematocrit 44 35-52 % Mean Corpuscular Volume 91 80-99 FL Mean Corpuscular Hemoglobin 30 25-34 PG Mean Corpuscular Hemoglobin Concent 33 32-36 G/DL Red Cell Distribution Width 13.8 10.0-14.5 % Platelet Count 272 130-400 10^3/uL Mean Platelet Volume 10.3 7.4-10.4 FL Neutrophils (%) (Auto) 54 42-75 % Lymphocytes (%) (Auto) 35 12-44 % Monocytes (%) (Auto) 9 0-12 % Eosinophils (%) (Auto) 2 0-10 % Basophils (%) (Auto) 1 0-10 % Neutrophils # (Auto) 4.6 1.8-7.8 X 10^3 Lymphocytes # (Auto) 3.0 1.0-4.0 X 10^3 Monocytes # (Auto) 0.8 0.0-1.0 X 10^3 Eosinophils # (Auto) 0.1 0.0-0.3 10^3/uL Basophils # (Auto) 0.0 0.0-0.1 10^3/uL Prothrombin Time 13.1 12.2-14.7 SEC INR Comment 1.0 0.8-1.4 Activated Partial Thromboplast Time 28 24-35 SEC Sodium Level 139 135-145 MMOL/L Potassium Level 4.1 3.6-5.0 MMOL/L Chloride Level 104 98-107 MMOL/L Carbon Dioxide Level 21 21-32 MMOL/L Anion Gap 14 5-14 MMOL/L Blood Urea Nitrogen 25 H 7-18 MG/DL Creatinine 0.92 0.60-1.30 MG/DL Estimat Glomerular Filtration Rate > 60 BUN/Creatinine Ratio 27 Glucose Level 140 H 70-105 MG/DL Calcium Level 9.6 8.5-10.1 MG/DL Magnesium Level 2.1 1.8-2.4 MG/DL Total Bilirubin 0.3 0.1-1.0 MG/DL Aspartate Amino Transf (AST/SGOT) 17 5-34 U/L Alanine Aminotransferase (ALT/SGPT) 13 0-55 U/L Alkaline Phosphatase 44 40-136 U/L Total Creatine Kinase 34 29-168 U/L Creatine Kinase MB 0.6 <6.6 NG/ML Troponin I < 0.30 <0.30 NG/ML B-Type Natriuretic Peptide 13.6 <100.0 PG/ML Total Protein 6.4 6.4-8.2 GM/DL Albumin 3.9 3.2-4.5 GM/DL Amylase Level 40 25-125 U/L Lipase 70 8-78 U/L TSH [place] Testing 1.37 0.35-4.94 UIU/ML My Orders Orders - SHERI GLASS DO Amylase (11/24/17 18:57) Cbc With Automated Diff (11/24/17 18:57) Comprehensive Metabolic Panel (11/24/17 18:57) Creatine Kinase (11/24/17 18:57) Creatine Kinase Mb (11/24/17 18:57) Lipase (11/24/17 18:57) Partial Thromboplastin Time (11/24/17 18:57) Protime With Inr (11/24/17 18:57) Troponin I (11/24/17 18:57) Chest 1 View, Ap/Pa Only (11/24/17 18:57) O2 (11/24/17 18:57) Ekg Tracing (11/24/17 18:57) Aspirin Chewable Tablet (Baby Aspirin Ch (11/24/17 19:00) BNP (11/24/17 18:57) Monitor-Rhythm Ecg Trace Only (11/24/17 18:57) Magnesium (11/24/17 18:57) Thyroid Analyzer (11/24/17 18:57) Vital Signs/I&O 11/24/17 11/24/17 18:59 18:59 Temp 98.2 Pulse 84 Resp 18 B/P (MAP) 195/130 (151) Pulse Ox 98 O2 Delivery Room Air Blood Pressure Mean: 151 Progress Progress Note : Progress Note PT HAD SHORT RUNS OF BIGEMINY DURING ER STAY, AND WHEN THEY OCCUR, PT STATES THIS IS THE SENSATION SHE HAS BEEN HAVING TONIGHT SHE STATES THIS IS WHAT USUALLY HAPPENS JUST BEFORE SHE GOES INTO ATRIAL FIBRILLATION. NO ATRIAL FIBRILLATION DURING ER STAY Initial ECG Impression Date: Nov 24, 2017 Initial ECG Impression Time: 19:02 Initial ECG Rate: 81 Initial ECG Rhythm: Normal Sinus Initial ECG Impression: Nonspecific Changes Diagnostic Imaging Comments CXR--NO ACUTE PROCESS, PER RADIOLOGIST REPORT @ 1928 Reviewed: Reviewed by Me Departure Communication (Admissions) 2039/2041--PAGED/SPOKE WITH DR. HAWKINS. ADVISES TO ADMIT TO HOSPITALIST AND DR. WALDROP OR HE CAN SEE PT IN CONSULT 2043--SPOKE WITH DR. MEDINA, ACCEPTS PT FOR ADMIT. Impression Primary Impression: Palpitations Additional Impressions: History of atrial fibrillation SYMPTOMATIC RUNS OF BIGMENY Disposition: ADMITTED INPATIENT Condition: Stable Admissions Decision to Admit Reason: Admit from ER (General) Decision to Admit/Date: Nov 24, 2017 Time/Decision to Admit Time: 20:45 Departure-Patient Inst. Referrals: TAYE HUDDLESTON MD (PCP) Primary Care Physician GÓMEZ LI MD (Family) Primary Care Physician SHERI GLASS DO Nov 24, 2017 19:28
[2017-11-24 19:35] LABS: PROTHROMBIN TIME PATIENT 13.1 SEC (12.2-14.7)
[2017-11-24 19:45] LABS: ALANINE AMINOTRANSFERASE 13 U/L (0-55); ALBUMIN 3.9 GM/DL (3.2-4.5); ALKALINE PHOSPHATASE 44 U/L (40-136); AMYLASE 40 U/L (25-125); BILIRUBIN,TOTAL 0.3 MG/DL (0.1-1.0); CALCIUM 9.6 MG/DL (8.5-10.1); CARBON DIOXIDE 21 MMOL/L (21-32); CHLORIDE 104 MMOL/L (98-107); CREATINE KINASE 34 U/L (29-168); GLUCOSE 140 MG/DL (70-105); LIPASE 70 U/L (8-78); MAGNESIUM 2.1 MG/DL (1.8-2.4); POTASSIUM 4.1 MMOL/L (3.6-5.0); SODIUM 139 MMOL/L (135-145); TOTAL PROTEIN 6.4 GM/DL (6.4-8.2)
[2017-11-24 20:05] LABS: CREATINE KINASE MB 0.6 NG/ML (<6.6); TSH (THYROID ANALYZER) 1.37 UIU/ML (0.35-4.94)
[2017-11-24 20:23] LABS: BUN/CREATININE RATIO 27; CREATININE SERUM 0.92 MG/DL (0.60-1.30); GFR ESTIMATED > 60
[2017-11-24 21:44] VITALS: BP 144/84
[2017-11-24 22:00] VITALS: BP 136/77
[2017-11-24 22:30] VITALS: BP 143/80
[2017-11-24 23:00] VITALS: BP 115/73
[2017-11-24] MEDS ORDERED: ALPRAZolam 0.5 MG (XANAX) TAB ONE (23:19)
[2017-11-24] MEDS ORDERED: PREGABALIN 100 MG (LYRICA) CAPSULE ONE (23:19)
[2017-11-24] MEDS: PREGABALIN 100 MG (LYRICA) CAPSULE PO SCH (23:22)
[2017-11-24] MEDS ORDERED: ALPRAZolam 0.5 MG (XANAX) TAB PO PRN (23:30)
[2017-11-25] VITALS: BP 109/74
[2017-11-25 04:00] VITALS: BP 100/73
--- NOTE | 2017-11-25 05:26 | Pulmonary Consultation ---
History of Present Illness History of Present Illness Date of Consultation 11/25/17 05:21 Time Seen by Provider: 05:21 Date of Admission History of Present Illness 66yo with hx of STEVE presented to ED secondary palpitations. Pt states she use to use a CPAP however she then lost 100lbs and was told she no longer needs CPAP therapy. SHe has been waking up gasping for air, and waking up with palpitations and migraine HARPER. RN has also noted she becomes hypoxia at night. Pt would like STEVE to be worked up. I explained to her we will have to do this as an outpatient. Allergies and Home Medications Allergies Coded Allergies: codeine (Unverified Adverse Reaction, Intermediate, 10/08/12) Home Medications Alprazolam 0.5 Mg Tablet, 0.5 MG PO TID PRN for ANXIETY, (Reported) Ascorbate Calcium 500 Mg Tablet, 500 MG PO BID, (Reported) Calcium/Magnesium/Zinc 1 Each Tablet, 1 TAB PO DAILY, (Reported) Docusate Sodium 100 Mg Capsule, 100 MG PO BID Prescribed by: JESSI CASTRO on 02/14/16 1537 Lisinopril 20 Mg Tablet, 20 MG PO DAILY, (Reported) Metformin Hcl 500 Mg Tablet, 500 MG PO BID WITH MEALS, (Reported) Metoprolol Succinate 100 Mg Tab.sr.24h, 50 MG PO DAILY, (Reported) Multivitamin 1 Each Tablet, 1 TAB PO DAILY, (Reported) Pregabalin 100 Mg Capsule, 100 MG PO BID, (Reported) Simvastatin 20 Mg Tablet, 20 MG PO HS, (Reported) Topiramate 25 Mg Tab, 75 MG PO DAILY, (Reported) TAKES 3 (25 MG) TABLETS Past Vmelswb-Snzruu-Broxpf Hx Patient Social History Alcohol Use: Denies Use Recreational Drug Use: No Smoking Status: Never a Smoker 2nd Hand Smoke Exposure: No Recent Foreign Travel: No Contact w/Someone Who Travel: No Recent Infectious Disease Expo: No Recent Hopitalizations: No Physical Abuse: No Sexual Abuse: No Immunizations Up To Date Tetanus Booster (TDap): Unknown Date of Influenza Vaccine: Apr 20, 2015 Seasonal Allergies Seasonal Allergies: No Past Medical History Surgeries: Yes (HYST/BSO; CARDIAC CATH--NO INTERVENTION; ECTOPIC X 2; LITHOTRIPSY) Appendectomy, Gallbladder, Hysterectomy, Oophorectomy, Renal Respiratory: Yes Chronic Bronchitis, Sleep Apnea Currently Using CPAP: No Currently Using BIPAP: No Cardiac: No Atrial Fibrillation, High Cholesterol, Hypertension Neurological: Yes Headaches /Migraines 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 Disorders: 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 X 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, 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 Genitourinary: Yes Kidney Infection, Bladder Infection, Kidney Stones Gastrointestinal: Yes Gastroesophageal Reflux, Diverticulosis, Gall Bladder Disease Musculoskeletal: Yes (FREQUENT FALLS, "BAD KNEES" AND USES ELECTRIC WHEELCHAIR FOR AMBULATION) Arthritis, Fibromyalgia Endocrine: Yes (MORBID OBESITY) Diabetes, Non-Insulin dep HEENT: No Cancer: No Psychosocial: Yes Anxiety, Bipolar, Depression Nursing Suicide Risk Score: 0 Integumentary: No Blood Disorders: No Family Medical History Arthritis 19 MOTHER Cardiovascular disease 19 FATHER Diabetes mellitus 19 FATHER G8 BROTHER Hypercholesterolemia 19 MOTHER Hypertension 19 FATHER 19 MOTHER Kidney disease 19 MOTHER Myocardial infarction 19 FATHER No Pertinent Family Hx Review of Systems Time Seen by Provider: 05:30 Constitutional: Sweats, Weakness, Malaise Eyes: No: Pain, Vision change, Conjunctivae inflammation, Eyelid inflammation, Other, Redness ENT: Nose congestion; No: Ear pain, Ear discharge, Nose pain, Nose discharge, Mouth pain, Mouth swelling, Throat pain, Throat swelling, Other Respiratory: Cough, Dry, Shortness of breath, SOB with excertion; No: Wheezing Cardiovascular: Chest Pain, Palpitations, Orthopnea, Paroxysmal Noc. Dyspnea; No: Edema, Lt Headedness, Other Gastrointestinal: No: Nausea, Vomiting, Abdominal Pain, Diarrhea, Constipation , Melena, Hematochezia, Other Genitourinary: No Dysuria, No Frequency, No Incontinence, No Hematuria, No Retention, No Other Neurological: Weakness Exam Exam Vital Signs Date Time Temp Pulse Resp B/P (MAP) Pulse Ox O2 Delivery O2 Flow Rate FiO2 11/25/17 04:00 98.0 64 33 100/73 (82) 95 Room Air 11/25/17 01:00 64 11/25/17 00:00 66 15 109/74 (86) 94 Room Air 11/25/17 00:00 99 Room Air 11/24/17 23:35 97.4 11/24/17 23:00 65 12 115/73 (87) 97 Room Air 11/24/17 22:30 66 10 143/80 (101) 97 Room Air 11/24/17 22:19 99 Room Air 11/24/17 22:00 64 8 136/77 (96) 98 Room Air 11/24/17 21:45 72 11/24/17 21:44 97.7 75 18 144/84 (104) 96 Room Air 11/24/17 21:29 98.2 84 18 154/84 (151) 98 Room Air 11/24/17 18:59 Room Air 11/24/17 18:59 98.2 84 18 195/130 (151) 98 General Appearance: No Apparent Distress, WD/WN HEENT: Normal ENT Inspection, Pharynx Normal Neck: Full Range of Motion, Normal Inspection, Non Tender, Supple Respiratory: Chest Non Tender, No Accessory Muscle Use, No Respiratory Distress , Decreased Breath Sounds Cardiovascular: Regular Rate, Rhythm, No Edema, No Gallop, No JVD, No Murmur Capillary Refill: Less Than 3 Seconds Gastrointestinal: normal bowel sounds, non tender, soft, no organomegaly Extremity: Normal Capillary Refill, Normal Inspection Neurologic/Psychiatric: Alert, Oriented x3 Skin: Normal Color, Warm/Dry Lymphatic: No Adenopathy Results Lab Laboratory Tests 11/24/17 19:15 Assessment/Plan Assessment/Plan Nocturnal hypoxia Palpitations, morning HARPER, hx of STEVE -Will have pt f/u with me as out patient for STEVE work up Palpitations -Cardiology is consulted Morbid obesity -Check ABG to r/o OHS CXR and labs reviewed 254 DIONNE TORRES DO Nov 25, 2017 05:26
[2017-11-25 06:09] LABS: BASOPHILS % (AUTO) 1 % (0-10); EOSINOPHILS # (AUTO) 0.1 10^3/uL (0.0-0.3); EOSINOPHILS % (AUTO) 2 % (0-10); HEMATOCRIT 40 % (35-52); HEMOGLOBIN 13.6 G/DL (11.5-16.0); LYMPHOCYTES # (AUTO) 2.7 X 10^3 (1.0-4.0); LYMPHOCYTES % (AUTO) 37 % (12-44); MEAN CORPUSCULAR HEMOGLOBIN 31 PG (25-34); MEAN CORPUSCULAR HGB CONC 34 G/DL (32-36); MEAN CORPUSCULAR VOLUME 92 FL (80-99); MEAN PLATELET VOLUME 10.2 FL (7.4-10.4); MONOCYTES # (AUTO) 0.9 X 10^3 (0.0-1.0); MONOCYTES % (AUTO) 12 % (0-12); NEUTROPHILS # (AUTO) 3.6 X 10^3 (1.8-7.8); NEUTROPHILS % (AUTO) 49 % (42-75); PLATELET COUNT 212 10^3/uL (130-400); RED BLOOD COUNT 4.37 10^6/uL (4.35-5.85); RED CELL DISTRIBUTION WIDTH 13.6 % (10.0-14.5); WHITE BLOOD COUNT 7.3 10^3/uL (4.3-11.0)
[2017-11-25] MEDS: inSUlin ASPART (NovoLOG) 1 UNIT/0.01 ML (CHARGE PER UNIT) SC SCH ×2 (06:10→11:07)
[2017-11-25 06:21] LABS: ABG OXYGEN SATURATION 96 % (94-100); ABG PCO2 41 MMHG (35-45); ABG PO2 75 MMHG (79-93); ABG TCO2 26.9 MMOL/L (21.0-31.0); ALLENS TEST YES-POS; INSPIRED O2 RA; PATIENT TEMP 96.3; VENTILATOR NO
[2017-11-25 06:24] LABS: BAND NEUTROPHILS 0 %; BASOPHILS % (MANUAL) 0 %; EOSINOPHILS % (MANUAL) 2 %; LYMPHOCYTES % (MANUAL) 39 %; MONOCYTES % (MANUAL) 7 %; NEUTROPHILS % (MANUAL) 52 %
[2017-11-25 06:25] LABS: TOXIC GRANULATION/VACUOLAZATIO 1+
[2017-11-25 06:31] LABS: ALANINE AMINOTRANSFERASE 14 U/L (0-55); ALBUMIN 3.4 GM/DL (3.2-4.5); ALKALINE PHOSPHATASE 38 U/L (40-136); BILIRUBIN,TOTAL 0.4 MG/DL (0.1-1.0); BUN/CREATININE RATIO 28; CALCIUM 8.8 MG/DL (8.5-10.1); CARBON DIOXIDE 22 MMOL/L (21-32); CHLORIDE 108 MMOL/L (98-107); CREATININE SERUM 0.78 MG/DL (0.60-1.30); GFR ESTIMATED > 60; GLUCOSE 113 MG/DL (70-105); POTASSIUM 4.2 MMOL/L (3.6-5.0); SODIUM 139 MMOL/L (135-145); TOTAL PROTEIN 5.7 GM/DL (6.4-8.2)
[2017-11-25] MEDS: PREGABALIN 100 MG (LYRICA) CAPSULE PO SCH (07:59)
[2017-11-25 08:00] VITALS: BP 115/72
--- NOTE | 2017-11-25 08:47 | Consultation-Cardiology ---
HPI-Cardiology Cardiology Consultation: Date of Consultation 11/25/17 Time Seen by Provider: 08:30 Date of Admission 11-24-17 Attending Physician Yanelis Chaidez DO Admitting Physician Eliecer Brantley MD Consulting Physician Kaleb Quiñones MD HPI: Chief Complaint: Palpitations Ms. Vazquez is a 66 year old female admitted to ICU 6 from the ED with c/o palpitations and dyspnea. Her primary sandwich artist is Dr. Norman. She reports yesterday evening she began to have a feeling of palpitations, skipped beat with associated dyspnea. She reports she has a pulse ox at home and it showed her HR in the 80's. However, when she would start to have palpitations it showed her HR in the 40's. She denies any CP, syncope or near syncope. She denies any LE edema. She denies any n/v/d. She denies any fever or chills. She states she was recently on a steroid pack d/t facial and upper extremity rash. She reports he PCP instructed her to increase her double up on her Lisinopril while she was on the steroid pack. She reports she did this all last week, but has since been on her usual dose. She reports she is feeling better this morning. She reports an occ feeling of a skipped beat, but much better than last evening. Review of Systems-Cardiology Review of Systems Constitutional: No chills, No fever Eyes: No vision change Ears/Nose/Throat: No recent hearing loss Respiratory: As described under HPI Cardiovascular: As described under HPI Gastrointestinal: No diarrhea, No nausea, No vomiting Genitourinary: No dysuria, No hematuria Musculoskeletal: no symptoms reported Skin: As described under HPI; No ulcerations Psychiatric/Neurological: No seizure, No focal weakness, No syncope Hematologic: No bleeding abnormalities [id number] Hx Patient Social History Alcohol Use: Denies Use Recreational Drug Use: No Smoking Status: Never a Smoker 2nd Hand Smoke Exposure: No Recent Foreign Travel: No Recent Infectious Disease Expo: No Hospitalization with Isolation: Denies Physical Abuse Screen: No Sexual Abuse: No Immunizations Up To Date Tetanus Booster (TDap): Unknown Date of Influenza Vaccine: Apr 20, 2015 Past Medical History PMH As described under Assessment. Family Medical History Family Medical History: She reports her father had CAD, HTN and DM. Her mother had HTN, HLD and kidney disease. Family History: Arthritis 19 MOTHER Cardiovascular disease 19 FATHER Diabetes mellitus 19 FATHER G8 BROTHER Hypercholesterolemia 19 MOTHER Hypertension 19 FATHER 19 MOTHER Kidney disease 19 MOTHER Myocardial infarction 19 FATHER Allergies and Home Medications Allergies Coded Allergies: codeine (Unverified Adverse Reaction, Intermediate, 10/08/12) Home Medications Alprazolam 0.5 Mg Tablet, 0.5 MG PO TID PRN for ANXIETY, (Reported) Ascorbate Calcium 500 Mg Tablet, 500 MG PO DAILY, (Reported) Aspirin 325 Mg Tablet.dr, 325 MG PO DAILY, (Reported) Aspirin 325 Mg Tablet.dr, 650 MG PO DAILY PRN for ARTHRITIS PAIN, (Reported) Docusate Sodium 100 Mg Capsule, 200 MG PO HS, (Reported) Lisinopril 20 Mg Tablet, 20 MG PO DAILY, (Reported) Magnesium Oxide 250 Mg Tablet, 250 MG PO DAILY, (Reported) Metformin HCl 500 Mg Tablet, 500 MG PO BID WITH MEALS, (Reported) Metoprolol Succinate 50 Mg Tab.er.24h, 50 MG PO HS, (Reported) Multivit-Min/FA/Lycopene/Lut 1 Each Tablet, 1 TAB PO DAILY, (Reported) Naproxen 500 Mg Tablet, 500 MG PO BID PRN for ARTHRITIS PAIN, (Reported) Potassium Gluconate 99 Mg Tablet, 99 MG PO DAILY, (Reported) Pregabalin 100 Mg Capsule, 100 MG PO BID, (Reported) Patient Home Medication List Home Medication List Reviewed: Yes Physical Exam-Cardiology Physical Exam Vital Signs/I&O Capillary Refill : Less Than 3 Seconds Constitutional: AAO x 3, well-developed, well-nourished HEENT: PERRL, hearing is well preserved, oral hygience is good; No xanthelasmas are seen Neck: No carotid bruit; carotid pulses are 2 + bilaterally Respiratory: No accessory muscle use, No respiratory distress; chest expansion is symmetric, chest is bilaterally symmetric, lungs clear to auscultation Cardiovascular: regular rate-rhythm; No JVD; S1 and S2 Gastrointestinal: No tender; soft, round, audible bowel sounds Rectal: deferred Extremities: no lower extremity edema bilateral Neurologic/Psychiatric: grossly intact Skin: No rash, No ulcerations Data Review Labs Radiology NAME: MARINA VAZQUEZ Ashley [facility] REC#: [id number] PT STATUS: ADM Jaelyn : 1950 PHYSICIAN: SHERI GLASS DO ADMIT DATE: 11/24/17/ICU Signed Date of Exam: 11/24/17 CHEST 1 VIEW, AP/PA ONLY INDICATION: Chest pain. Comparison with 02/23/2017. FINDINGS: Portable chest is well-aerated. There are no infiltrates or masses. Heart is not enlarged. No pulmonary edema. No hilar adenopathy. No pneumothorax or pleural effusion. IMPRESSION: Normal portable chest. Dictated by: Dictated on workstation # [id number] Dict: 11/24/171922 Trans: 11/24/172125 Interpreted by: HUGO BAHENA MD Electronically signed by: HUGO BAHENA MD 11/24/172125 ECG Impression ECG Comment SR with occ PVC's A/P-Cardiology Assessment/Admission Diagnosis Palpitations associated with bigeminal PVC's Dyspnea associated with palpitations No evidence of ACS H/O Paroxysmal atrial fibrillation Stroke prophylaxis with ASA 325mg Stress test from April 2016 did not show evidence of ischemia or infarction per Dr. Norman Echocardiogram of August [address] Norman showed LVEF 55-65%. Grade I diastolic dysfunction. Mild MR. Mild to mod TR. PASP 40 mmHg Hypertension Hyperlipidemia - statin tx Diabetes mellitus COPD Nonobstructive carotid artery stenosis per carotid duplex done January 2016 Obesity, BMI 48 Clinical Quality Measures DVT/VTE Risk/Contraindication: Risk Factor Score Per Nursin RFS Level Per Nursing on Admit: 4+=Very High FATUMA BASURTO Nov 25, 2017 08:47
[2017-11-25] MEDS ORDERED: PREG100C PO (10:02)
[2017-11-25] MEDS ORDERED: MULT-1029 PO (10:02)
[2017-11-25] MEDS ORDERED: NAPR-915 PO (10:02)
[2017-11-25] MEDS ORDERED: POTA99TA21 PO (10:02)
[2017-11-25] MEDS ORDERED: METO-370 PO (10:02)
[2017-11-25] MEDS ORDERED: LISI-552 PO (10:02)
[2017-11-25] MEDS ORDERED: DOCU-143 PO (10:02)
[2017-11-25] MEDS ORDERED: METF500T5 PO (10:02)
[2017-11-25] MEDS ORDERED: ASPI325T32 PO (10:02)
[2017-11-25] MEDS ORDERED: MAGN250T13 PO (10:02)
[2017-11-25 12:00] VITALS: BP 153/85
--- NOTE | 2017-11-25 12:08 | Short Stay Summary-Hospitalist ---
History of Present Illness HPI/Chief Complaint CC: Palpitations HPI: This is a 66-year-old white female clinic patient of Dr. Brantley at [facility] in [place] with a past medical history of cardiology management by Dr. Norman who presented to the ER with complaints of palpitations. She got concerned when her heart rate was in the 48 range but she had no syncopal episodes or dizziness episodes at that time then felt like her heart was beating fast she was assessed in the ER found to have benign PVCs but she was closely monitored throughout the night and at this current time cardiology is evaluated her found to have no evidence of impending cardiac ischemic event so she will be discharged but Dr. Russell saw her in consultation we'll arrange for sleep study and she reports that she did at one point where sleep apnea treatment machine but a long time ago discontinued it. 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 Norman and will have discharge this afternoon. Source: patient Exam Limitations: no limitations Date Seen 11/25/17 Time Seen by Provider: 10:45 Attending Physician Yanelis Medina DO PCP Eliecer Brantley MD Referring Physician Date of Admission Nov 24, 2017 at 21:07 Home Medications & Allergies Home Medications Reviewed patient Home Medication Reconciliation performed by pharmacy medication reconciliations commercial service technician and/or nursing. Patients Allergies have been reviewed. Allergies Allergies Coded Allergies codeine (Unverified Adverse Reaction, Intermediate, 10/08/12) Past Pswaimk-Zyyafa-Oabesk Hx Past Med/Social Hx: Reviewed Nursing Past Med/Soc Hx, Reviewed and Corrections made Patient Social History Marrital Status: Employed/Student: retired Alcohol Use: Denies Use Recreational Drug Use: No Smoking Status: Never a Smoker 2nd Hand Smoke Exposure: No Physical Abuse Screen: No Sexual Abuse: No Recent Foreign Travel: No Contact w/other who traveled: No Recent Hopitalizations: No Recent Infectious Disease Expo: No Immunizations Up To Date Tetanus Booster (TDap): Unknown Date of Influenza Vaccine: Apr 20, 2015 Seasonal Allergies Seasonal Allergies: Yes Past Medical History Surgeries: Appendectomy, Gallbladder, Hysterectomy, Oophorectomy, Renal Respiratory: Sleep Apnea Currently Using CPAP: No Currently Using BIPAP: No Cardiac: Atrial Fibrillation, High Cholesterol, Hypertension Neurological: Headaches /Migraines 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: 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 X 2) Hysterectomy, Menopausal Genitourinary: Kidney Infection, Bladder Infection, Kidney Stones Gastrointestinal: Gastroesophageal Reflux, Diverticulosis, Esophagitis, Gall Bladder Disease Musculoskeletal: Arthritis, Fibromyalgia Endocrine: Diabetes, Non-Insulin dep Psychosocial: Anxiety, Bipolar, Depression History of Blood Disorders: No Family History Arthritis 19 MOTHER Cardiovascular disease 19 FATHER Diabetes mellitus 19 FATHER G8 BROTHER Hypercholesterolemia 19 MOTHER Hypertension 19 FATHER 19 MOTHER Kidney disease 19 MOTHER Myocardial infarction 19 FATHER No Pertinent Family Hx Review of Systems Constitutional: see HPI EENTM: no symptoms reported Respiratory: no symptoms reported Cardiovascular: palpitations Gastrointestinal: no symptoms reported Genitourinary: no symptoms reported Musculoskeletal: no symptoms reported Skin: no symptoms reported Psychiatric/Neurological: No Symptoms Reported All Other Systems Reviewed Negative Unless Noted: Yes Physical Exam Physical Exam Vital Signs Vital Signs - First Documented 11/24/17 18:59 Temp 98.2 Pulse 84 Resp 18 B/P (MAP) 195/130 (151) Pulse Ox 98 O2 Delivery Room Air Capillary Refill : Less Than 3 Seconds General Appearance: No Apparent Distress, WD/WN, Chronically ill, Obese Eyes: Bilateral Eye Normal Inspection, Bilateral Eye PERRL HEENT: PERRL/EOMI, Normal ENT Inspection, Pharynx Normal Neck: Full Range of Motion, Normal Inspection, Non Tender, Supple, Carotid Bruit Respiratory: Chest Non Tender, Lungs Clear, Normal Breath Sounds, No Accessory Muscle Use, No Respiratory Distress Cardiovascular: Regular Rate, Rhythm, No Edema, No Gallop, No JVD, No Murmur, Normal Peripheral Pulses Gastrointestinal: Normal Bowel Sounds, No Organomegaly, No Pulsatile Mass, Non Tender, Soft Back: Normal Inspection, No CVA Tenderness, No Vertebral Tenderness Extremity: Normal Capillary Refill, Normal Inspection, Normal Range of Motion, Non Tender, No Calf Tenderness, No Pedal Edema Neurologic/Psychiatric: Alert, Oriented x3, No Motor/Sensory Deficits, Normal Mood/Affect Skin: Normal Color, Warm/Dry Lymphatic: No Adenopathy Results Results/Procedures Labs Laboratory Tests 11/24/17 19:15 11/25/17 06:00 Patient resulted labs reviewed. Short Stay Diagnosis Discharge Diagnosis-Short Stay Admission Diagnosis Palpitations Final Discharge Diagnosis Palpitations Conclusion Plan Plan: Appreciate cardiology recommendations Sleep studies an outpatient Resume all home meds Discharge home Diagnosis/Problems Diagnosis/Problems (1) Palpitations Status: Acute (2) Obesity Status: Chronic Qualifiers: Qualified Codes: E66.01 - Morbid (severe) obesity due to excess calories; Z68.42 - Body mass index (BMI) 45.0-49.9, adult (3) Sleep apnea Status: Chronic (4) Diabetes Status: Chronic Qualifiers: Qualified Codes: E11.59 - Type 2 diabetes mellitus with other circulatory complications (5) History of atrial fibrillation Status: Chronic Clinical Quality Measures DVT/VTE Risk/Contraindication: Risk Factor Score Per Nursin RFS Level Per Nursing on Admit: 4+=Very High YANELIS MEDINA DO Nov 25, 2017 12:08
[2017-11-25] MEDS ORDERED: ASPIRIN E.C. 325 MG (ECOTRIN) TABLET PO PRN (12:15)
[2017-11-25] MEDS ORDERED: ALPRAZolam 0.5 MG (XANAX) TAB PO PRN (12:15)
[2017-11-25] MEDS ORDERED: NON-FORMULARY MEDICATION 1 EA EA (Naproxen 500 MG) PO PRN (12:15)
[2017-11-25] MEDS ORDERED: NON-FORMULARY MEDICATION 1 EA EA (Metformin HCl 500 MG) PO SCH (17:00)
[2017-11-25] MEDS ORDERED: PREGABALIN 100 MG (LYRICA) CAPSULE PO SCH (21:00)
[2017-11-25] MEDS ORDERED: meTOproloL SUCCINATE 50 MG (TOPROL XL) TAB PO SCH (21:00)
[2017-11-25] MEDS ORDERED: DOCUSATE SODIUM 100 MG (COLACE) CAP PO SCH (21:00)
[2017-11-26] MEDS ORDERED: lisINopril 20 MG (PRINIVIL) TABLET PO SCH (09:00)
[2017-11-26] MEDS ORDERED: NON-FORMULARY MEDICATION 1 EA EA (Ascorbate Calcium (Vitamin C) 500 MG) PO SCH (09:00)
[2017-11-26] MEDS ORDERED: NON-FORMULARY MEDICATION 1 EA EA (Magnesium Oxide (Magnesium) 250 MG) PO SCH (09:00)
[2017-11-26] MEDS ORDERED: NON-FORMULARY MEDICATION 1 EA EA (Potassium Gluconate (Potassium) 99 MG) PO SCH (09:00)
[2017-11-26] MEDS ORDERED: NON-FORMULARY MEDICATION 1 EA EA (Multivit-Min/FA/Lycopene/Lut (Centrum Silver Tablet) 1 T PO SCH (09:00)
[2017-11-26] MEDS ORDERED: ASPIRIN E.C. 325 MG (ECOTRIN) TABLET PO SCH (09:00)
== END 2017-11-25 12:06 | disposition home or self-care (01) ==
LOC: EDUNIT# 18:53 → ER 18:55 → ICU 21:07 → UNDOADMOB 21:07 → ICU 21:33 → UNDODISOB 11-25 14:26
PROVIDERS: ADMIT Internal Medicine; ATTEND Internal Medicine
DX: R00.2 Palpitations (principal); E66.01 Morbid (severe) obesity due to excess calories; Z68.42 Body mass index [BMI] 45.0-49.9, adult; G47.50 Parasomnia, unspecified; E11.59 Type 2 diabetes mellitus with other circulatory complications; I48.0 Paroxysmal atrial fibrillation; I49.3 Ventricular premature depolarization; I10 Essential (primary) hypertension; E78.5 Hyperlipidemia, unspecified; J44.9 Chronic obstructive pulmonary disease, unspecified; I65.23 Occlusion and stenosis of bilateral carotid arteries; I08.1 Rheumatic disorders of both mitral and tricuspid valves; Z79.899 Other long term (current) drug therapy; F31.9 Bipolar disorder, unspecified; F41.9 Anxiety disorder, unspecified; R09.02 Hypoxemia; G47.33 Obstructive sleep apnea (adult) (pediatric)
CPT/HCPCS: 36415; 36600; 71045; 80053; 82150; 82550; 82553; 82805; 82962; 83690; 83735; 83880; 84443; 84484; 85007; 85025; 85027; 85610; 85730; 93005; 93041

== ENCOUNTER 2019-05-24 16:46 | Emergency (ER) | payer MEDICARE, OTHER ==
[~2019-05-24] VITALS: Ht 162 cm; Wt 124.0 kg
[~2019-05-24 16:46] MED LIST changes: +ASPI325T32 PO; +LISI-552 PO; +MAGN250T13 PO; +METF-397 PO; +METO50TA7 PO; +MULT-1029 PO; +NAPR-915 PO; +POTA99TA21 PO; +PREG100C PO; -TAMS0.4C98 PO; +TMSL.4C PO
[2019-05-24 18:09] LABS: BASOPHILS # (AUTO) 0.1 10^3/uL (0.0-0.1); BASOPHILS % (AUTO) 1 % (0-10); EOSINOPHILS # (AUTO) 0.1 10^3/uL (0.0-0.3); EOSINOPHILS % (AUTO) 1 % (0-10); HEMATOCRIT 44 % (35-52); HEMOGLOBIN 14.4 G/DL (11.5-16.0); LYMPHOCYTES # (AUTO) 1.7 X 10^3 (1.0-4.0); LYMPHOCYTES % (AUTO) 21 % (12-44); MEAN CORPUSCULAR HEMOGLOBIN 30 PG (25-34); MEAN CORPUSCULAR HGB CONC 33 G/DL (32-36); MEAN CORPUSCULAR VOLUME 92 FL (80-99); MEAN PLATELET VOLUME 10.1 FL (7.4-10.4); MONOCYTES # (AUTO) 0.7 X 10^3 (0.0-1.0); MONOCYTES % (AUTO) 8 % (0-12); NEUTROPHILS # (AUTO) 5.7 X 10^3 (1.8-7.8); NEUTROPHILS % (AUTO) 70 % (42-75); PLATELET COUNT 224 10^3/uL (130-400); RED CELL DISTRIBUTION WIDTH 14.1 % (10.0-14.5); WHITE BLOOD COUNT 8.2 10^3/uL (4.3-11.0)
[2019-05-24] MEDS: NS IV 1000 ML 1,000 ML IV SCH ×2 (18:15→20:00)
[2019-05-24 18:19] LABS: BILIRUBIN,URINE NEGATIVE (NEGATIVE); CLARITY,URINE CLEAR; COLOR,URINE YELLOW; GLUCOSE, URINE (UA) NEGATIVE (NEGATIVE); KETONES,URINE NEGATIVE (NEGATIVE); LEUKOCYTE ESTERASE ,URINE 1+ (NEGATIVE); NITRITE,URINE NEGATIVE (NEGATIVE); PROTEIN,URINE NEGATIVE (NEGATIVE)
[2019-05-24 18:31] LABS: ALBUMIN 3.8 GM/DL (3.2-4.5); BILIRUBIN,TOTAL 0.2 MG/DL (0.1-1.0); CALCIUM 8.8 MG/DL (8.5-10.1); CREATININE SERUM 0.95 MG/DL (0.60-1.30); POTASSIUM 4.2 MMOL/L (3.6-5.0); TOTAL PROTEIN 6.1 GM/DL (6.4-8.2)
[2019-05-24 19:00] LABS: BACTERIA,URINE TRACE /HPF
[2019-05-24] MEDS ORDERED: ONDA4TAB11 PO (19:47)
[2019-05-24] MEDS ORDERED: NITR-65 PO (19:47)
--- NOTE | 2019-05-24 19:48 | ED Abdominal Pain ---
General Chief Complaint: Abdominal/GI Problems Stated Complaint: ABD PAIN, DIARRHEA Nursing Triage Note: pt presents to ed with complaints of n/v/d. pt reports n/v starting today but diahrrea since 05/10/19 after eating a salad at [facility]. pt reports several light headed episodes while attempting to have a bm. Sepsis Screen: No Definite Risk Source of Information: Patient Exam Limitations: No Limitations History of Present Illness Date Seen by Provider: May 24, 2019 Time Seen by Provider: 17:16 Initial Comments 68-year-old female who presents to the emergency room with complaints of nausea, vomiting, diarrhea that started today. She reports she has had diarrhea since 05/10/19 after eating a salad at [facility]. She's also been on antibiotics for UTI recently. She denies fevers. Associated Symptoms: Nausea/Vomiting Allergies and Home Medications Allergies Coded Allergies: codeine (Unverified Adverse Reaction, Intermediate, 10/08/12) Home Medications Alprazolam 0.5 Mg Tablet, 0.5 MG PO TID PRN for ANXIETY, (Reported) Ascorbate Calcium 500 Mg Tablet, 500 MG PO DAILY, (Reported) Aspirin 325 Mg Tablet.dr, 325 MG PO DAILY, (Reported) Aspirin 325 Mg Tablet.dr, 650 MG PO DAILY PRN for ARTHRITIS PAIN, (Reported) Docusate Sodium 100 Mg Capsule, 200 MG PO HS, (Reported) Lisinopril 20 Mg Tablet, 20 MG PO DAILY, (Reported) Magnesium Oxide 250 Mg Tablet, 250 MG PO DAILY, (Reported) Metformin HCl 500 Mg Tablet, 500 MG PO BID WITH MEALS, (Reported) Metoprolol Succinate 50 Mg Tab.er.24h, 50 MG PO HS, (Reported) Multivit-Min/FA/Lycopene/Lut 1 Each Tablet, 1 TAB PO DAILY, (Reported) Naproxen 500 Mg Tablet, 500 MG PO BID PRN for ARTHRITIS PAIN, (Reported) Nitrofurantoin Monohyd/M-Cryst 100 Mg Capsule, 1 TAB PO BID Prescribed by: GILBERT SYKES on 05/24/191946 Ondansetron 4 Mg Tab.rapdis, 4 MG PO Q4H Prescribed by: GILBERT SYKES on 05/24/191946 Potassium Gluconate 99 Mg Tablet, 99 MG PO DAILY, (Reported) Pregabalin 100 Mg Capsule, 100 MG PO BID, (Reported) Patient Home Medication List Home Medication List Reviewed: Yes Review of Systems Review of Systems Constitutional: see HPI; No chills, No fever Gastrointestinal: See HPI, Diarrhea, Nausea, Vomiting All Other Systems Reviewed Negative Unless Noted: Yes Past Molmktb-Owjuyx-Fiqdum Hx Past Med/Social Hx: Reviewed Nursing Past Med/Soc Hx Patient Social History Alcohol Use: Denies Use Recreational Drug Use: No Smoking Status: Never a Smoker 2nd Hand Smoke Exposure: No Recent Foreign Travel: No Contact w/Someone Who Travel: No Recent Infectious Disease Expo: No Recent Hopitalizations: No Physical Abuse: No Sexual Abuse: No Mistreated: No Fear: No Immunizations Up To Date Tetanus Booster (TDap): Unknown Date of Influenza Vaccine: Apr 20, 2015 Seasonal Allergies Seasonal Allergies: Yes Past Medical History Surgeries: Yes Appendectomy, Gallbladder, Hysterectomy, Oophorectomy, Renal Respiratory: Yes Chronic Bronchitis, Sleep Apnea Currently Using CPAP: No Currently Using BIPAP: No Cardiac: Yes (CARDIAC CATH--NO INTERVENTION; CHF; INTERMITTENT ATRIAL FIB) Atrial Fibrillation, High Cholesterol, Hypertension Neurological: Yes Headaches /Migraines 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 Disorders: 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 X 2) CLEARING HAND History: Hysterectomy, Menopausal Genitourinary: Yes Kidney Infection, Bladder Infection, Kidney Stones Gastrointestinal: Yes (INCIDENTAL FINDING OF DIVERTICULOSIS ON CT-NO HX OF ACUTE DIVERTICULITIS) Gastroesophageal Reflux, Diverticulosis, Esophagitis, Gall Bladder Disease Musculoskeletal: Yes (FREQUENT FALLS, "BAD KNEES" AND USES ELECTRIC WHEELCHAIR FOR AMBULATION) Arthritis, Fibromyalgia Endocrine: Yes (MORBID OBESITY) Diabetes, Non-Insulin dep HEENT: No Cancer: No Psychosocial: Yes Anxiety, Bipolar, Depression Integumentary: No Blood Disorders: No Family Medical History Reviewed Nursing Family Hx Arthritis 19 MOTHER Cardiovascular disease 19 FATHER Diabetes mellitus 19 FATHER G8 BROTHER Hypercholesterolemia 19 MOTHER Hypertension 19 FATHER 19 MOTHER Kidney disease 19 MOTHER Myocardial infarction 19 FATHER No Pertinent Family Hx Physical Exam Vital Signs Vital Signs - First Documented 05/24/19 05/24/19 16:54 20:04 Temp 36.7 Pulse 80 Resp 20 B/P (MAP) 99/60 (73) Pulse Ox 99 O2 Delivery Room Air Capillary Refill : Less Than 3 Seconds Height/Weight/BMI Height: 5'4.00" Weight: 282lbs. 4.0oz. 128.582869nd; 47.00 BMI Method:Stated General Appearance: WD/WN, no apparent distress Respiratory: chest non-tender, lungs clear, normal breath sounds, no respiratory distress, no accessory muscle use Cardiovascular: normal peripheral pulses, regular rate, rhythm, no edema, no gallop, no JVD, no murmur Gastrointestinal: normal bowel sounds, non tender, soft, no organomegaly, no pulsatile mass Extremities: normal capillary refill Neurologic/Psychiatric: alert, normal mood/affect, oriented x 3 Skin: normal color, warm/dry Progress/Results/Core Measures Results/Orders Lab Results Laboratory Tests Test 05/24/19 16:50 05/24/19 18:03 05/24/19 18:13 Range/Units Lab Scanned Report Referred Lab Report [id number] White Blood Count 8.2 4.3-11.0 10^3/uL Red Blood Count 4.80 4.35-5.85 10^6/uL Hemoglobin 14.4 11.5-16.0 G/DL Hematocrit 44 35-52 % Mean Corpuscular Volume 92 80-99 FL Mean Corpuscular Hemoglobin 30 25-34 PG Mean Corpuscular Hemoglobin Concent 33 32-36 G/DL Red Cell Distribution Width 14.1 10.0-14.5 % Platelet Count 224 130-400 10^3/uL Mean Platelet Volume 10.1 7.4-10.4 FL Neutrophils (%) (Auto) 70 42-75 % Lymphocytes (%) (Auto) 21 12-44 % Monocytes (%) (Auto) 8 0-12 % Eosinophils (%) (Auto) 1 0-10 % Basophils (%) (Auto) 1 0-10 % Neutrophils # (Auto) 5.7 1.8-7.8 X 10^3 Lymphocytes # (Auto) 1.7 1.0-4.0 X 10^3 Monocytes # (Auto) 0.7 0.0-1.0 X 10^3 Eosinophils # (Auto) 0.1 0.0-0.3 10^3/uL Basophils # (Auto) 0.1 0.0-0.1 10^3/uL Sodium Level 140 135-145 MMOL/L Potassium Level 4.2 3.6-5.0 MMOL/L Chloride Level 106 98-107 MMOL/L Carbon Dioxide Level 24 21-32 MMOL/L Anion Gap 10 5-14 MMOL/L Blood Urea Nitrogen 24 H 7-18 MG/DL Creatinine 0.95 0.60-1.30 MG/DL Estimat Glomerular Filtration Rate 59 BUN/Creatinine Ratio 25 Glucose Level 122 H 70-105 MG/DL Calcium Level 8.8 8.5-10.1 MG/DL Corrected Calcium 9.0 8.5-10.1 MG/DL Total Bilirubin 0.2 0.1-1.0 MG/DL Aspartate Amino Transf (AST/SGOT) 25 5-34 U/L Alanine Aminotransferase (ALT/SGPT) 25 0-55 U/L Alkaline Phosphatase 54 40-136 U/L Total Protein 6.1 L 6.4-8.2 GM/DL Albumin 3.8 3.2-4.5 GM/DL Amylase Level 40 25-125 U/L Lipase 48 8-78 U/L Urine Color YELLOW Urine Clarity CLEAR Urine pH 7.0 5-9 Urine Specific [place] 1.015 L 1.016-1.022 Urine Protein NEGATIVE NEGATIVE Urine Glucose (UA) NEGATIVE NEGATIVE Urine Ketones NEGATIVE NEGATIVE Urine Nitrite NEGATIVE NEGATIVE Urine Bilirubin NEGATIVE NEGATIVE Urine Urobilinogen 0.2 < = 1.0 MG/DL Urine Leukocyte Esterase 1+ H NEGATIVE Urine RBC (Auto) NEGATIVE NEGATIVE Urine RBC NONE /HPF Urine WBC 5-10 H /HPF Urine Crystals NONE /LPF Urine Bacteria TRACE /HPF Urine Casts NONE /LPF Urine Mucus NEGATIVE /LPF Urine Culture Indicated YES Micro Results Microbiology 05/24/19 Urine Culture - Final, Complete NO GROWTH My Orders Orders - GILBERT SYKES Comprehensive Metabolic Panel (05/24/19 17:16) Lipase (05/24/19 17:16) Amylase (05/24/19 17:16) Ua Culture If Indicated (05/24/19 17:16) Ed Iv/Invasive Line Start (05/24/19 17:16) Cbc With Automated Diff (05/24/19 17:16) Ns Iv 1000 Ml (Sodium Chloride 0.9%) (05/24/19 18:00) Urine Culture (05/24/19 18:13) Vital Signs/I&O 05/24/19 05/24/19 16:54 20:04 Temp 36.7 36.7 Pulse 80 73 Resp 20 20 B/P (MAP) 99/60 (73) 137/79 (73) Pulse Ox 99 98 O2 Delivery Room Air Blood Pressure Mean: 73 POS Progress Progress Note : Time: 19:44 Progress Note I have seen and evaluated the patient. I've informed her of her laboratory days. She was unable to produce a BM at this time. Outpatient stool studies have been ordered and results will be sent to her primary care provider. She agrees with plan of care, plans for discharge, return precautions were given. Departure Impression Primary Impression: Urinary tract infection Disposition: 01 HOME, SELF-CARE Condition: Stable/Unchanged Departure-Patient Inst. Decision time for Depature: 19:44 Referrals: TAYE HUDDLESTON MD (PCP) Primary Care Physician GÓMEZ LI MD (Family) Primary Care Physician Patient Instructions: Diarrhea in Adolescents and Adults, Urinary Tract Infections in Adults Add. Discharge Instructions: Take medications as directed. You may use [id number] antidiarrheals as directed by the packaging. Bring your stool back to the lab for testing. Return back to the emergency room for worsening symptoms or concerns as needed. Follow- up with your primary care provider within 1 week for recheck. All discharge instructions reviewed with patient and/or family. Voiced understanding. Scripts Nitrofurantoin Monohyd/M-Cryst (Macrobid 100 mg Capsule) 100 Mg Capsule 1 TAB PO BID for 7 Days, #14 CAP Prov: GILBERT SYKES 05/24/19 Ondansetron (Ondansetron Odt) 4 Mg Tab.rapdis 4 MG PO Q4H, #30 TAB Prov: GILBERT SYKES 05/24/19 GILBERT SYKES May 24, 2019 19:48 POS
[2019-05-24 20:04] VITALS: BP 137/79
== END 2019-05-24 20:13 | disposition home or self-care (01) ==
LOC: EDUNIT# 16:46 → ER 16:50
DX: N39.0 Urinary tract infection, site not specified (principal); I11.0 Hypertensive heart disease with heart failure; I50.9 Heart failure, unspecified; E11.9 Type 2 diabetes mellitus without complications; E78.00 Pure hypercholesterolemia, unspecified; I48.91 Unspecified atrial fibrillation; G43.909 Migraine, unspecified, not intractable, without status migrainosus; K21.9 Gastro-esophageal reflux disease without esophagitis; M79.7 Fibromyalgia; E66.01 Morbid (severe) obesity due to excess calories; F41.9 Anxiety disorder, unspecified; F31.9 Bipolar disorder, unspecified; Z87.442 Personal history of urinary calculi; Z88.5 Allergy status to narcotic agent; Z68.42 Body mass index [BMI] 45.0-49.9, adult; Z79.82 Long term (current) use of aspirin; Z79.84 Long term (current) use of oral hypoglycemic drugs; Z90.49 Acquired absence of other specified parts of digestive tract; Z90.710 Acquired absence of both cervix and uterus; Z82.49 Family history of ischemic heart disease and other diseases of the circulatory system
CPT/HCPCS: 36415; 80053; 81000; 82150; 83690; 85025; 87088; 96360; 96361

== ENCOUNTER → 2019-05-25 | Outpatient (CLI) | payer MEDICARE, OTHER ==
[~2019-05-25] MED LIST changes: +NITR-65 PO; +ONDA4TAB11 PO
== END ==
LOC: LABNPT 15:16
PROVIDERS: ATTEND Student in an Organized Health Care Education/Training Program
DX: Z01.89 Encounter for other specified special examinations (principal)
CPT/HCPCS: 87015; 87045; 87046; 87324; 87328; 87329; 87449; 87899

== ENCOUNTER → 2019-06-21 | Outpatient (CLI) | payer MEDICARE, OTHER ==
[~2019-06-21] MED LIST changes: +CATHETER FLUSH 10 ML SYR IV PRN; +HOLD METFORMIN - RECEIVED CONTRAST 20 ML VIAL IV SCH; +IOHEXOL 350 MG/ML 100 ML (OMNIPAQUE 350) VIAL IV ONE; +METO-370 PO; -METO50TA7 PO; +NS 100 ML (IVPB) BAG IV ONE; +TAMS0.4C98 PO; -TMSL.4C PO
--- NOTE | 2019-06-21 15:34 | Diagnostic Imaging Report ---
PROCEDURE: CT abdomen and pelvis with contrast. TECHNIQUE: Multiple contiguous axial images were obtained through the abdomen and pelvis after administration of intravenous contrast. Auto Exposure Controls were utilized during the CT exam to meet ALARA standards for radiation dose reduction. INDICATION: Right upper quadrant pain. COMPARISON: Correlation is made with prior CT from 02/23/2017. FINDINGS: The lung bases are clear. No discrete liver mass is detected. The gallbladder is surgically absent. No biliary ductal dilatation is seen. The pancreas and spleen are unremarkable. No adrenal mass is detected. The kidneys are without evidence of hydronephrosis. No definite ureteral calculi are detected. Aorta is calcified but non-aneurysmal. Small and large bowel loops are normal in caliber. There is no obstruction. There is diverticulosis of the sigmoid but no evidence of acute diverticulitis. Bladder is unremarkable. Right adnexal cyst is noted measuring 4.5 cm, consistent with ovarian cyst. The bony structures are nonacute. IMPRESSION: 1. No evidence of urinary tract calculi or obstruction. 2. Uncomplicated diverticulosis. 3. 4.5 cm right adnexal cyst. Dictated by: Dictated on workstation # [id number]
== END ==
LOC: RAD 14:57
PROVIDERS: ATTEND Pediatrics
DX: K57.30 Diverticulosis of large intestine without perforation or abscess without bleeding (principal); N83.8 Other noninflammatory disorders of ovary, fallopian tube and broad ligament
CPT/HCPCS: 74177

== ENCOUNTER 2019-12-20 12:36 | Emergency (ER) | payer MEDICARE, OTHER ==
[~2019-12-20] VITALS: Ht 162.5 cm; Wt 127.0 kg
[~2019-12-20 12:36] MED LIST changes: -CATHETER FLUSH 10 ML SYR IV PRN; -HOLD METFORMIN - RECEIVED CONTRAST 20 ML VIAL IV SCH; -IOHEXOL 350 MG/ML 100 ML (OMNIPAQUE 350) VIAL IV ONE; -METO-370 PO; +METO50TA7 PO; -NS 100 ML (IVPB) BAG IV ONE; -TAMS0.4C98 PO; +TMSL.4C PO
--- NOTE | 2019-12-20 12:55 | ED Abdominal Pain ---
General Stated Complaint: N/V Source of Information: Patient Exam Limitations: No Limitations History of Present Illness Date Seen by Provider: Dec 20, 2019 Time Seen by Provider: 12:53 Initial Comments To ER with reports of periumbilical abdominal cramping nausea and vomiting. This began suddenly after eating sonic. She soiled herself in the waiting room. She is not nauseated not, just has lower abdominal cramping. She felt fine upon awakening this morning. Timing/Duration: 1-2 Days Severity/Quality: Moderate Radiation: No Radiation Activities at Onset: None Associated Symptoms: Nausea/Vomiting Allergies and Home Medications Allergies Coded Allergies: codeine (Unverified Adverse Reaction, Intermediate, 10/08/12) Home Medications Alprazolam 0.5 Mg Tablet, 0.5 MG PO TID PRN for ANXIETY, (Reported) Ascorbate Calcium 500 Mg Tablet, 500 MG PO DAILY, (Reported) Aspirin 325 Mg Tablet.dr, 325 MG PO DAILY, (Reported) Aspirin 325 Mg Tablet.dr, 650 MG PO DAILY PRN for ARTHRITIS PAIN, (Reported) Cefuroxime Axetil 250 Mg Tablet, 250 MG PO BID Prescribed by: MASHA EVERETT on 12/20/19 1448 Docusate Sodium 100 Mg Capsule, 200 MG PO HS, (Reported) Lisinopril 20 Mg Tablet, 20 MG PO DAILY, (Reported) Magnesium Oxide 250 Mg Tablet, 250 MG PO DAILY, (Reported) Metformin HCl 500 Mg Tablet, 500 MG PO BID WITH MEALS, (Reported) Metoprolol Succinate 50 Mg Tab.er.24h, 50 MG PO HS, (Reported) Multivit-Min/FA/Lycopene/Lut 1 Each Tablet, 1 TAB PO DAILY, (Reported) Naproxen 500 Mg Tablet, 500 MG PO BID PRN for ARTHRITIS PAIN, (Reported) Nitrofurantoin Monohyd/M-Cryst 100 Mg Capsule, 1 TAB PO BID Prescribed by: GILBERT SYKES on 05/24/191946 Ondansetron 4 Mg Tab.rapdis, 4 MG PO Q4H Prescribed by: GILBERT SYKES on 05/24/191946 Potassium Gluconate 99 Mg Tablet, 99 MG PO DAILY, (Reported) Pregabalin 100 Mg Capsule, 100 MG PO BID, (Reported) Patient Home Medication List Home Medication List Reviewed: Yes Review of Systems Review of Systems Constitutional: see HPI EENTM: No Symptoms Reported Respiratory: No Symptoms Reported Cardiovascular: No Symptoms Reported Gastrointestinal: See HPI, Abdominal Pain, Diarrhea, Nausea Genitourinary: No Symptoms Reported Musculoskeletal: no symptoms reported Skin: no symptoms reported Psychiatric/Neurological: No Symptoms Reported Endocrine: No Symptoms Reported Hematologic/Lymphatic: No Symptoms Reported Past Mwuycpv-Dypyyx-Kgrehh Hx Patient Social History 2nd Hand Smoke Exposure: No Recent Foreign Travel: No Contact w/Someone Who Travel: No Recent Hopitalizations: No Immunizations Up To Date Tetanus Booster (TDap): Unknown Date of Influenza Vaccine: Apr 20, 2015 Seasonal Allergies Seasonal Allergies: Yes Past Medical History Surgeries: Yes Appendectomy, Gallbladder, Hysterectomy, Oophorectomy, Renal Respiratory: Yes Chronic Bronchitis, Sleep Apnea Currently Using CPAP: No Currently Using BIPAP: No Cardiac: Yes (CARDIAC CATH--NO INTERVENTION; CHF; INTERMITTENT ATRIAL FIB) Atrial Fibrillation, High Cholesterol, Hypertension Neurological: Yes Headaches /Migraines 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 Disorders: 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, Menopausal Genitourinary: Yes Kidney Infection, Bladder Infection, Kidney Stones Gastrointestinal: Yes (INCIDENTAL FINDING OF DIVERTICULOSIS ON CT-NO HX OF ACUTE DIVERTICULITIS) Gastroesophageal Reflux, Diverticulosis, Esophagitis, Gall Bladder Disease Musculoskeletal: Yes (FREQUENT FALLS, "BAD KNEES" AND USES ELECTRIC WHEELCHAIR FOR AMBULATION) Arthritis, Fibromyalgia Endocrine: Yes (MORBID OBESITY) Diabetes, Non-Insulin dep HEENT: No Cancer: No Psychosocial: Yes Anxiety, Bipolar, Depression Integumentary: No Blood Disorders: No Family Medical History Arthritis 19 MOTHER Cardiovascular disease 19 FATHER Diabetes mellitus 19 FATHER G8 BROTHER Hypercholesterolemia 19 MOTHER Hypertension 19 FATHER 19 MOTHER Kidney disease 19 MOTHER Myocardial infarction 19 FATHER No Pertinent Family Hx Physical Exam Vital Signs Vital Signs - First Documented 12/20/19 12:38 Temp 36.6 Pulse 66 Resp 20 B/P (MAP) 102/40 (60) Pulse Ox 96 O2 Delivery Room Air Capillary Refill : Height/Weight/BMI Height: 5'4.00" Weight: 282lbs. 4.0oz. 128.467885as; 47.00 BMI Method:Stated General Appearance: WD/WN, no apparent distress, obese HEENT: PERRL/EOMI, normal ENT inspection Respiratory: no respiratory distress, no accessory muscle use Gastrointestinal: normal bowel sounds, soft, tenderness Extremities: normal range of motion, non-tender Neurologic/Psychiatric: alert, normal mood/affect, oriented x 3 Skin: normal color, warm/dry Progress/Results/Core Measures Results/Orders Lab Results Laboratory Tests Test 12/20/19 12:41 12/20/19 14:13 Range/Units White Blood Count 8.9 4.3-11.0 10^3/uL Red Blood Count 5.24 4.35-5.85 10^6/uL Hemoglobin 16.1 H 11.5-16.0 G/DL Hematocrit 49 35-52 % Mean Corpuscular Volume 94 80-99 FL Mean Corpuscular Hemoglobin 31 25-34 PG Mean Corpuscular Hemoglobin Concent 33 32-36 G/DL Red Cell Distribution Width 13.7 10.0-14.5 % Platelet Count 326 130-400 10^3/uL Mean Platelet Volume 10.6 H 7.4-10.4 FL Neutrophils (%) (Auto) 55 42-75 % Lymphocytes (%) (Auto) 39 12-44 % Monocytes (%) (Auto) 4 0-12 % Eosinophils (%) (Auto) 2 0-10 % Basophils (%) (Auto) 1 0-10 % Neutrophils # (Auto) 4.9 1.8-7.8 X 10^3 Lymphocytes # (Auto) 3.4 1.0-4.0 X 10^3 Monocytes # (Auto) 0.4 0.0-1.0 X 10^3 Eosinophils # (Auto) 0.2 0.0-0.3 10^3/uL Basophils # (Auto) 0.1 0.0-0.1 10^3/uL Sodium Level 142 135-145 MMOL/L Potassium Level 3.9 3.6-5.0 MMOL/L Chloride Level 109 H 98-107 MMOL/L Carbon Dioxide Level 18 L 21-32 MMOL/L Anion Gap 15 H 5-14 MMOL/L Blood Urea Nitrogen 17 7-18 MG/DL Creatinine 1.33 H 0.60-1.30 MG/DL Estimat Glomerular Filtration Rate 40 BUN/Creatinine Ratio 13 Glucose Level 143 H 70-105 MG/DL Calcium Level 9.7 8.5-10.1 MG/DL Corrected Calcium 9.7 8.5-10.1 MG/DL Total Bilirubin 0.5 0.1-1.0 MG/DL Aspartate Amino Transf (AST/SGOT) 22 5-34 U/L Alanine Aminotransferase (ALT/SGPT) 13 0-55 U/L Alkaline Phosphatase 100 40-136 U/L Total Protein 6.6 6.4-8.2 GM/DL Albumin 4.0 3.2-4.5 GM/DL Urine Color YELLOW Urine Clarity CLEAR Urine pH 6.5 5-9 Urine Specific [place] 1.020 1.016-1.022 Urine Protein 3+ H NEGATIVE Urine Glucose (UA) NEGATIVE NEGATIVE Urine Ketones NEGATIVE NEGATIVE Urine Nitrite NEGATIVE NEGATIVE Urine Bilirubin NEGATIVE NEGATIVE Urine Urobilinogen 0.2 < = 1.0 MG/DL Urine Leukocyte Esterase TRACE H NEGATIVE Urine RBC (Auto) NEGATIVE NEGATIVE Urine RBC NONE /HPF Urine WBC 10-25 H /HPF Urine Squamous Epithelial Cells 2-5 /HPF Urine Crystals NONE /LPF Urine Bacteria FEW H /HPF Urine Casts PRESENT /LPF Urine Hyaline Casts 5-10 H /LPF Urine Mucus SMALL H /LPF Urine Culture Indicated YES My Orders Orders - MASHA EVERETT APRN Cbc With Automated Diff (12/20/19 12:51) Comprehensive Metabolic Panel (12/20/19 12:51) Ua Culture If Indicated (12/20/19 12:51) Ed Iv/Invasive Line Start (12/20/19 12:51) Ns Iv 1000 Ml (Sodium Chloride 0.9%) (12/20/19 13:00) Hyoscyamine Sl Tablet (Levsin Sl Tablet) (12/20/19 13:00) Ct Abdomen/Pelvis Wo (12/20/19 13:11) Urine Culture (12/20/19 14:13) Medications Given in ED Current Medications Medications Dose Ordered Sig/Gerardo Route Start Time Stop Time Status Last Admin Dose Admin Hyoscyamine Sulfate 0.25 mg ONCE ONCE PO 12/20/19 13:00 12/20/19 13:01 DC 12/20/19 13:02 0.25 MG Vital Signs/I&O 12/20/19 12:38 Temp 36.6 Pulse 66 Resp 20 B/P (MAP) 102/40 (60) Pulse Ox 96 O2 Delivery Room Air Diagnostic Imaging Diagonstic Imaging: CT Comments NAME: MARINA LYNCH [facility] REC#: [id number] PT STATUS: REG ER : 1950 PHYSICIAN: MASHA EVERETT APRN ADMIT DATE: 12/20/19/ER Draft Date of Exam:12/20/19 CT ABDOMEN/PELVIS WO PROCEDURE: CT abdomen and pelvis without contrast. TECHNIQUE: Multiple contiguous axial images were obtained through the abdomen and pelvis without the use of intravenous contrast. Auto Exposure Controls were utilized during the CT exam to meet ALARA standards for radiation dose reduction. INDICATION: Diarrhea and vomiting. COMPARISON: Correlation is made with prior CT from 06/21/2019. FINDINGS: The lung bases are clear. The gallbladder is surgically absent. No focal liver abnormality is identified. No biliary ductal dilatation is seen. The pancreas and spleen are unremarkable. No definite adrenal or renal abnormality is seen. There are no calculi or hydronephrosis. Aorta is calcified but nonaneurysmal. There does appear to be a long segment of wall thickening involving the descending colon. Mild adjacent inflammatory stranding is present as well and findings are suggestive of nonspecific colitis. There is diverticulosis of the sigmoid but no evidence of acute diverticulitis. The bladder is decompressed. The uterus is surgically absent. No free fluid is detected. There is a probable cyst in the right adnexa measuring 3.9 cm. IMPRESSION: Findings suggestive of nonspecific colitis involving the descending colon. No bowel obstruction, free air, or abscess formation is identified. Dictated on workstation # [id number] Dict: 12/20/19 1350 Trans: 12/20/19 1400 [id number] [id number] Interpreted by: ROYAL MEDINA MD Electronically signed by: Departure Communication (Admissions) Spoke with Dr. Albright on-call for surgery, agrees with plan of care to discharge home on Bactrim plus Flagyl. Blood pressure at the time of discharge is 147/80, normal white count. Impression Primary Impression: Enterocolitis Additional Impression: UTI (urinary tract infection) Disposition: HOME, SELF-CARE Condition: Stable Departure-Patient Inst. Decision time for Depature: 14:44 Referrals: [facility] (PCP) Primary Care Physician GÓMEZ GAMBOA (Family) Primary Care Physician Patient Instructions: Colitis, Urinary Tract Infection, Adult (DC) Add. Discharge Instructions: . Return to ER for any concerns 2. Follow-up with your doctor next week 3. Drink plenty of fluids like Pedialyte, clear liquids for 24-48 hours. Antibiotics as directed. Return to ER for any worsening bloody stools, high fevers or intolerable pain. Scripts Metronidazole (Flagyl) 500 Mg Tablet 500 MG PO TID, #15 TAB Prov: MASHA EVERETT APRN 12/20/19 Sulfamethoxazole/Trimethoprim (Bactrim Ds Tablet) 1 Each Tablet 1 EACH PO BID, #10 TAB Prov: MASHA EVERETT APRN 12/20/19 Copy Copies To 1: ESTEFANÍA BLACKMAN PETER J APRN Dec 20, 2019 12:55
[2019-12-20] MEDS ORDERED: HYOSCYAMINE 0.125 MG (LEVSIN) TAB PO ONE (13:00)
[2019-12-20] MEDS ORDERED: NS IV 1000 ML 1,000 ML IV SCH (13:00)
[2019-12-20 13:06] LABS: BASOPHILS # (AUTO) 0.1 10^3/uL (0.0-0.1); BASOPHILS % (AUTO) 1 % (0-10); EOSINOPHILS # (AUTO) 0.2 10^3/uL (0.0-0.3); EOSINOPHILS % (AUTO) 2 % (0-10); HEMATOCRIT 49 % (35-52); HEMOGLOBIN 16.1 G/DL (11.5-16.0); LYMPHOCYTES # (AUTO) 3.4 X 10^3 (1.0-4.0); LYMPHOCYTES % (AUTO) 39 % (12-44); MEAN CORPUSCULAR HEMOGLOBIN 31 PG (25-34); MEAN CORPUSCULAR HGB CONC 33 G/DL (32-36); MEAN CORPUSCULAR VOLUME 94 FL (80-99); MEAN PLATELET VOLUME 10.6 FL (7.4-10.4); MONOCYTES # (AUTO) 0.4 X 10^3 (0.0-1.0); MONOCYTES % (AUTO) 4 % (0-12); NEUTROPHILS # (AUTO) 4.9 X 10^3 (1.8-7.8); NEUTROPHILS % (AUTO) 55 % (42-75); PLATELET COUNT 326 10^3/uL (130-400); RED CELL DISTRIBUTION WIDTH 13.7 % (10.0-14.5); WHITE BLOOD COUNT 8.9 10^3/uL (4.3-11.0)
--- OUTSIDE RECORDS SUMMARY | 2019-12-20 13:07 | XMS REPORT | Continuity of Care Document ---
Author Organization Unknown Address Unknown Phone Unavailable Allergies Active Description Code Type Severity Reaction Onset Reported/Identified Relationship to Patient Clinical Status Yes codeine [id number] Drug Allergy Moderate N/A 10/08/2012 Medications There is no data. 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 COLI] 06/28/2015 BAR MEDINA DO Ot E11.9 TYPE 2 DIABETES MELLITUS WITHOUT COMPLIC 06/28/2015 BAR MEDINA DO Ot E78.5 HYPERLIPIDEMIA, UNSPECIFIED 06/28/2015 BAR MEDINA DO Ot E86.9 VOLUME DEPLETION, UNSPECIFIED 06/28/2015 BAR MEDINA DO Ot I10 ESSENTIAL (PRIMARY) HYPERTENSION 06/28/2015 BAR MEDINA DO Ot N10 ACUTE TUBULO-INTERSTITIAL NEPHRITIS 06/28/2015 BAR MEDINA DO Ot N83.20 UNSPECIFIED OVARIAN CYSTS 06/28/2015 BAR MEDINA DO Ot Z87.44 2 PERSONAL HISTORY OF URINARY CALCULI 11/06/2015 Ot 427.31 ATR IAL FIBRILLATION 11/06/2015 Ot 785.1 PALP ITATIONS 11/06/2015 Ot 272.4 HYPE RLIPIDEMIA NEC/NOS 11/06/2015 Ot 401.9 HYPE RTENSION NOS 11/06/2015 Ot 414.01 COR ONARY ATHEROSCLEROSIS OF [place] CORON 11/06/2015 Ot 427.31 ATR IAL FIBRILLATION 11/06/2015 Ot 785.1 PALP ITATIONS 11/06/2015 Ot V76.12 OTH SCREEN MAMMO- MALIGN NEOPLASM OF [place] 11/06/2015 SANAM ALEXANDRE Ot 793.8 1 MAMMOGRAPHIC MICROCLACIFICATION 11/06/2015 SANAM ALEXANDRE Ot V76.1 2 OTH SCREEN MAMMO-MALIGN NEOPLASM OF [place] 11/06/2015 SANAM ALEXANDRE Ot 793.8 0 UNSPEC ABNORMAL MAMMOGRAM 11/06/2015 Ot 427.31 ATR IAL FIBRILLATION 11/06/2015 Ot 785.1 PALP ITATIONS 11/06/2015 Ot 427.31 ATR IAL FIBRILLATION 11/06/2015 Ot 785.1 PALP ITATIONS 11/06/2015 Ot 272.4 HYPE RLIPIDEMIA NEC/NOS 11/06/2015 Ot 401.9 HYPE RTENSION NOS 11/06/2015 Ot 414.01 COR ONARY ATHEROSCLEROSIS OF [place] CORON 11/06/2015 Ot 427.31 ATR IAL FIBRILLATION 11/06/2015 Ot 785.1 PALP ITATIONS 11/06/2015 Ot V76.12 OTH SCREEN MAMMO- MALIGN NEOPLASM OF [place] 11/06/2015 SANAM ALEXANDRE Ot 793.8 1 MAMMOGRAPHIC MICROCLACIFICATION 11/06/2015 SANAM ALEXANDRE Ot V76.1 2 OTH SCREEN MAMMO-MALIGN NEOPLASM OF [place] 11/06/2015 SANAM ALEXANDRE Ot 793.8 0 UNSPEC ABNORMAL MAMMOGRAM 12/25/2015 Ot 427.31 ATR IAL FIBRILLATION 12/25/2015 Ot 785.1 PALP ITATIONS 12/25/2015 Ot 272.4 HYPE RLIPIDEMIA NEC/NOS 12/25/2015 Ot 401.9 HYPE RTENSION NOS 12/25/2015 Ot 414.01 COR ONARY ATHEROSCLEROSIS OF [place] CORON 12/25/2015 Ot 427.31 ATR IAL FIBRILLATION 12/25/2015 Ot 785.1 PALP ITATIONS 12/25/2015 Ot V76.12 OTH SCREEN MAMMO- MALIGN NEOPLASM OF [place] 12/25/2015 SANAM ALEXANDRE Ot 793.8 1 MAMMOGRAPHIC MICROCLACIFICATION 12/25/2015 BALDOMERO SANAM W MEDICAL BILLING SERVICE Ot V76.1 2 OTH SCREEN MAMMO-MALIGN NEOPLASM OF [place] 12/25/2015 SANAM ALEXANDRE Ot 793.8 0 UNSPEC ABNORMAL MAMMOGRAM 12/25/2015 Ot 427.31 ATR IAL FIBRILLATION 12/25/2015 Ot 785.1 PALP ITATIONS 02/05/2016 LELAND BIRD Ot E66.9 OBESITY, UNSPECIFIED 02/05/2016 LELAND BIRD Ot E78.2 MIXED HYPERLIPIDEMIA 02/05/2016 LELAND BIRD Ot I10 ESSENTIAL (PRIMARY) HYPERTENSION 02/05/2016 LELAND BIRD Ot I48.0 PAROXYSMAL ATRIAL FIBRILLATION 02/14/2016 Ot 427.31 ATR IAL FIBRILLATION 02/14/2016 Ot 785.1 PALP ITATIONS 02/14/2016 Ot 272.4 HYPE RLIPIDEMIA NEC/NOS 02/14/2016 Ot 401.9 HYPE RTENSION NOS 02/14/2016 Ot 414.01 COR ONARY ATHEROSCLEROSIS OF [place] CORON 02/14/2016 Ot 427.31 ATR IAL FIBRILLATION 02/14/2016 Ot 785.1 PALP ITATIONS 02/14/2016 Ot V76.12 OTH SCREEN MAMMO- MALIGN NEOPLASM OF [place] 02/14/2016 BALDOMERO SANAMMook HERNANDEZ Ot 793.8 1 MAMMOGRAPHIC MICROCLACIFICATION 02/14/2016 SANAM ALEXANDRE Ot V76.1 2 OTH SCREEN MAMMO-MALIGN NEOPLASM OF [place] 02/14/2016 SANAM ALEXANDRE Ot 793.8 0 UNSPEC ABNORMAL MAMMOGRAM 02/14/2016 LELAND BIRD Ot E66.9 OBESITY, UNSPECIFIED 02/14/2016 LELAND BIRD Ot E78.2 MIXED HYPERLIPIDEMIA 02/14/2016 LELAND BIRD Ot I10 ESSENTIAL (PRIMARY) HYPERTENSION 02/14/2016 LELAND BIRD Ot I48.0 PAROXYSMAL ATRIAL FIBRILLATION 02/14/2016 Ot 427.31 ATR IAL FIBRILLATION 02/14/2016 Ot 785.1 PALP ITATIONS 02/14/2016 Ot 272.4 HYPE RLIPIDEMIA NEC/NOS 02/14/2016 Ot 401.9 HYPE RTENSION NOS 02/14/2016 Ot 414.01 COR ONARY ATHEROSCLEROSIS OF [place] CORON 02/14/2016 Ot 427.31 ATR IAL FIBRILLATION 02/14/2016 Ot 785.1 PALP ITATIONS 02/14/2016 Ot V76.12 OTH SCREEN MAMMO- MALIGN NEOPLASM OF [place] 02/14/2016 SANAM ALEXANDRE Ot 793.8 1 MAMMOGRAPHIC MICROCLACIFICATION 02/14/2016 SANAM ALEXANDRE Ot V76.1 2 OTH SCREEN MAMMO-MALIGN NEOPLASM OF [place] 02/14/2016 SANAM ALEXANDRE Ot 793.8 0 UNSPEC ABNORMAL MAMMOGRAM 02/14/2016 LELAND BIRD Ot E66.9 OBESITY, UNSPECIFIED 02/14/2016 LELAND BIRD Ot E78.2 MIXED HYPERLIPIDEMIA 02/14/2016 LELAND BIRD Ot I10 ESSENTIAL (PRIMARY) HYPERTENSION 02/14/2016 LELAND BIRD Ot I48.0 PAROXYSMAL ATRIAL FIBRILLATION 02/15/2016 JESSI CASTRO DO Ot E11. 9 TYPE 2 DIABETES MELLITUS WITHOUT COMPLIC 02/15/2016 JESSI CASTRO DO Ot E66. 9 OBESITY, UNSPECIFIED 02/15/2016 JESSI CASTRO DO Ot F17.210 NICOTINE DEPENDENCE, CIGARETTES, UNCOMPL 02/15/2016 JESSI CASTRO DO Ot I10 ESSENTIAL (PRIMARY) HYPERTENSION 02/15/2016 JESSI CASTRO DO Ot I48. 91 UNSPECIFIED ATRIAL FIBRILLATION 02/15/2016 JESSI CASTRO DO Ot K21. 9 GASTRO-ESOPHAGEAL REFLUX DISEASE WITHOUT 02/15/2016 JESSI CASTRO DO Ot K35. 80 UNSPECIFIED ACUTE APPENDICITIS 02/15/2016 JESSI CASTRO DO Ot N39. 0 URINARY TRACT INFECTION, SITE NOT SPECIF 02/15/2016 JESSI CASTRO DO Ot Z68. 42 BODY MASS INDEX (BMI) 45.0-49.9, ADULT 02/19/2016 JESSI CASTRO DO Ot E11. 9 TYPE 2 DIABETES MELLITUS WITHOUT COMPLIC 02/19/2016 JESSI CASTRO DO Ot E66. 9 OBESITY, UNSPECIFIED 02/19/2016 JESSI CASTRO DO Ot F17.210 NICOTINE DEPENDENCE, CIGARETTES, UNCOMPL 02/19/2016 JESSI CASTRO DO Marianela Ot I10 ESSENTIAL (PRIMARY) HYPERTENSION 02/19/2016 JESSI CASTRO DO Ot I48. 91 UNSPECIFIED ATRIAL FIBRILLATION 02/19/2016 JESSI CASTRO DO Ot K21. 9 GASTRO-ESOPHAGEAL REFLUX DISEASE WITHOUT 02/19/2016 JESSI CASTRO DO Ot K35. 80 UNSPECIFIED ACUTE APPENDICITIS 02/19/2016 CASTRO JESSI PANG Ot N39. 0 URINARY TRACT INFECTION, SITE NOT SPECIF 02/19/2016 JESSI CASTRO DO Ot Z68. 42 BODY MASS INDEX (BMI) 45.0-49.9, ADULT 03/01/2016 Ot 427.31 ATR IAL FIBRILLATION 03/01/2016 Ot 785.1 PALP ITATIONS 03/01/2016 Ot 272.4 HYPE RLIPIDEMIA NEC/NOS 03/01/2016 Ot 401.9 HYPE RTENSION NOS 03/01/2016 Ot 414.01 COR ONARY ATHEROSCLEROSIS OF [place] CORON 03/01/2016 Ot 427.31 ATR IAL FIBRILLATION 03/01/2016 Ot 785.1 PALP ITATIONS 03/01/2016 Ot V76.12 OTH SCREEN MAMMO- MALIGN NEOPLASM OF [place] 03/01/2016 SANAM ALEXANDRE Ot 793.8 1 MAMMOGRAPHIC MICROCLACIFICATION 03/01/2016 SANAM ALEXANDRE Ot V76.1 2 OTH SCREEN MAMMO-MALIGN NEOPLASM OF [place] 03/01/2016 SANAM ALEXANDRE Ot 793.8 0 UNSPEC ABNORMAL MAMMOGRAM 03/01/2016 LELAND BIRD Ot E66.9 OBESITY, UNSPECIFIED 03/01/2016 LELAND BIRD Ot E78.2 MIXED HYPERLIPIDEMIA 03/01/2016 LELAND BIRD Ot I10 ESSENTIAL (PRIMARY) HYPERTENSION 03/01/2016 LELAND BIRD Ot I48.0 PAROXYSMAL ATRIAL FIBRILLATION 03/18/2016 LELAND BIRD Ot E66.9 OBESITY, UNSPECIFIED 03/18/2016 LELAND BIRD Ot E78.2 MIXED HYPERLIPIDEMIA 03/18/2016 LELAND BIRD Ot I10 ESSENTIAL (PRIMARY) HYPERTENSION 03/18/2016 LELAND BIRD Ot I48.0 PAROXYSMAL ATRIAL FIBRILLATION 04/07/2016 Ot 427.31 ATR IAL FIBRILLATION 04/07/2016 Ot 785.1 PALP ITATIONS 04/07/2016 Ot 272.4 HYPE RLIPIDEMIA NEC/NOS 04/07/2016 Ot 401.9 HYPE RTENSION NOS 04/07/2016 Ot 414.01 COR ONARY ATHEROSCLEROSIS OF [place] CORON 04/07/2016 Ot 427.31 ATR IAL FIBRILLATION 04/07/2016 Ot 785.1 PALP ITATIONS 04/07/2016 Ot V76.12 OTH SCREEN MAMMO- MALIGN NEOPLASM OF [place] 04/07/2016 SANAM ALEXANDRE MEDICAL BILLING SERVICE Ot 793.8 1 MAMMOGRAPHIC MICROCLACIFICATION 04/07/2016 SANAM ALEXANDRE Ot V76.1 2 OTH SCREEN MAMMO-MALIGN NEOPLASM OF [place] 04/07/2016 SANAM ALEXANDRE Ot 793.8 0 UNSPEC ABNORMAL MAMMOGRAM 04/07/2016 LELAND BIRD Ot E66.9 OBESITY, UNSPECIFIED 04/07/2016 LELAND BIRD Ot E78.2 MIXED HYPERLIPIDEMIA 04/07/2016 LELAND BIRD Ot I10 ESSENTIAL (PRIMARY) HYPERTENSION 04/07/2016 LELAND BIRD Ot I48.0 PAROXYSMAL ATRIAL FIBRILLATION 04/07/2016 LELAND BIRD Ot E66.9 OBESITY, UNSPECIFIED 04/07/2016 LLEAND BIRD Ot E78.2 MIXED HYPERLIPIDEMIA 04/07/2016 LELAND BIRD Ot I10 ESSENTIAL (PRIMARY) HYPERTENSION 04/07/2016 LELAND BIRD Ot I48.0 PAROXYSMAL ATRIAL FIBRILLATION 04/08/2016 LELAND BIRD Ot E66.9 OBESITY, UNSPECIFIED 04/08/2016 LELAND BIRD Ot E78.2 MIXED HYPERLIPIDEMIA 04/08/2016 JIMÉNEZ-ANDRÉS PA, LELAND K Ot I10 ESSENTIAL (PRIMARY) HYPERTENSION 04/08/2016 PERICO PA, LELAND K Ot I48.0 PAROXYSMAL ATRIAL FIBRILLATION 04/08/2016 PERICO PA, LELAND K Ot E66.9 OBESITY, UNSPECIFIED 04/08/2016 PERICO PA, LELAND K Ot E78.2 MIXED HYPERLIPIDEMIA 04/08/2016 PERICO PA, LELAND K Ot I10 ESSENTIAL (PRIMARY) HYPERTENSION 04/08/2016 PERICO PA, LELAND K Ot I48.0 PAROXYSMAL ATRIAL FIBRILLATION 05/25/2016 PERICO PA, LELAND K Ot E66.9 OBESITY, UNSPECIFIED 05/25/2016 PERICO PA, LELAND K Ot E78.2 MIXED HYPERLIPIDEMIA 05/25/2016 PERICO PA, LELAND K Ot I10 ESSENTIAL (PRIMARY) HYPERTENSION 05/25/2016 PERICO GILBERT, LELAND K Ot I48.0 PAROXYSMAL ATRIAL FIBRILLATION 08/04/2016 ARCHIE ROBLES MEDICAL BILLING SERVICE Ot R05 COUGH 08/04/2016 ARCHIE ROBLES MEDICAL BILLING SERVICE Ot R09. 89 OTH SYMPTOMS AND SIGNS INVOLVING THE CIR 10/27/2016 Ot V76.12 OTH SCREEN MAMMO- MALIGN NEOPLASM OF [place] 10/27/2016 SANAM ALEXANDRE MEDICAL BILLING SERVICE Ot 793.8 1 MAMMOGRAPHIC MICROCLACIFICATION 10/27/2016 SANAM ALEXANDRE MEDICAL BILLING SERVICE Ot V76.1 2 OTH SCREEN MAMMO-MALIGN NEOPLASM OF [place] 10/27/2016 SANAM ALEXANDRE MEDICAL BILLING SERVICE Ot 793.8 0 UNSPEC ABNORMAL MAMMOGRAM 10/27/2016 PERICO GILBERT, LELAND K Ot E66.9 OBESITY, UNSPECIFIED 10/27/2016 PERICO GILBERT, LELAND K Ot E78.2 MIXED HYPERLIPIDEMIA 10/27/2016 PERICO GILBERT, LELAND K Ot I10 ESSENTIAL (PRIMARY) HYPERTENSION 10/27/2016 PERICO GILBERT, LELAND K Ot I48.0 PAROXYSMAL ATRIAL FIBRILLATION 10/27/2016 PERICO GILBERT, LELAND K Ot E66.9 OBESITY, UNSPECIFIED 10/27/2016 PERICO GILBERT, LELAND K Ot E78.2 MIXED HYPERLIPIDEMIA 10/27/2016 JIMÉNEZ-ANDRÉS PA, LELAND K Ot I10 ESSENTIAL (PRIMARY) HYPERTENSION 10/27/2016 PERICO GILBERT, LELAND Dale Ot I48.0 PAROXYSMAL ATRIAL FIBRILLATION 10/27/2016 PERICO GILBERT, LELAND Dale Ot E66.9 OBESITY, UNSPECIFIED 10/27/2016 PERICO GILBERT, LELAND Dale Ot E78.2 MIXED HYPERLIPIDEMIA 10/27/2016 PERICO GILBERT, LELAND Dale Ot I10 ESSENTIAL (PRIMARY) HYPERTENSION 10/27/2016 PERICO GILBERT, LELAND Dale Ot I48.0 PAROXYSMAL ATRIAL FIBRILLATION 10/27/2016 ARCHIE ROBLES MEDICAL BILLING SERVICE Ot R05 COUGH 10/27/2016 ARCHIE ROBLES MEDICAL BILLING SERVICE Ot R09. 89 OTH SYMPTOMS AND SIGNS INVOLVING THE CIR 11/05/2016 Ot V76.12 OTH SCREEN MAMMO- MALIGN NEOPLASM OF [place] 11/05/2016 SANAM ALEXANDRE MEDICAL BILLING SERVICE Ot 793.8 1 MAMMOGRAPHIC MICROCLACIFICATION 11/05/2016 SANAM ALEXANDRE MEDICAL BILLING SERVICE Ot V76.1 2 OTH SCREEN MAMMO-MALIGN NEOPLASM OF [place] 11/05/2016 SANAM ALEXANDRE MEDICAL BILLING SERVICE Ot 793.8 0 UNSPEC ABNORMAL MAMMOGRAM 11/05/2016 LELAND BIRD Ot E66.9 OBESITY, UNSPECIFIED 11/05/2016 LELAND BIRD Ot E78.2 MIXED HYPERLIPIDEMIA 11/05/2016 PERICO GILBERT, LELAND Dale Ot I10 ESSENTIAL (PRIMARY) HYPERTENSION 11/05/2016 LELAND BIRD Ot I48.0 PAROXYSMAL ATRIAL FIBRILLATION 11/05/2016 PERICO GILBERT, LELAND Dale Ot E66.9 OBESITY, UNSPECIFIED 11/05/2016 PERICO GILBERT, LELAND K Ot E78.2 MIXED HYPERLIPIDEMIA 11/05/2016 PERICO GILBERT, LELAND Dale Ot I10 ESSENTIAL (PRIMARY) HYPERTENSION 11/05/2016 PERICO GILBERT, LELAND Dale Ot I48.0 PAROXYSMAL ATRIAL FIBRILLATION 11/05/2016 LELAND BIRD Ot E66.9 OBESITY, UNSPECIFIED 11/05/2016 LELAND BIRD Ot E78.2 MIXED HYPERLIPIDEMIA 11/05/2016 LELAND BIRD Ot I10 ESSENTIAL (PRIMARY) HYPERTENSION 11/05/2016 LELAND BIRD Ot I48.0 PAROXYSMAL ATRIAL FIBRILLATION 11/05/2016 ARCHIE ROBLES MEDICAL BILLING SERVICE Ot R05 COUGH 11/05/2016 ARCHIE ROBLES MEDICAL BILLING SERVICE Ot R09. 89 OTH SYMPTOMS AND SIGNS INVOLVING THE CIR 11/05/2016 JONNY DPM, RAHEL Q Ot R52 PAIN, UNSPECIFIED 11/05/2016 JONNY DPM, RAHEL Q Ot R60. 9 EDEMA, UNSPECIFIED 12/06/2016 JONNY DPM, RAHEL Q Ot R52 PAIN, UNSPECIFIED 12/06/2016 JONNY DPM, RAHEL Q Ot R60. 9 EDEMA, UNSPECIFIED 01/03/2017 ZHANE DOMÍNGUEZSung Humphrey MEDICAL BILLING SERVICE Ot M16.12 UNILATERAL PRIMARY OSTEOARTHRITIS, LEFT 01/03/2017 DOMÍNGUEZ, LING Humphrey MEDICAL BILLING SERVICE Ot M43.16 SPONDYLOLISTHESIS, LUMBAR REGION 01/03/2017 DOMÍNGUEZLING MEDICAL BILLING SERVICE Ot R11.10 VOMITING, UNSPECIFIED 01/03/2017 ZHANE DOMÍNGUEZSung Humphrey MEDICAL BILLING SERVICE Ot R51 HEADACHE 01/03/2017 LING DOMÍNGUEZ MEDICAL BILLING SERVICE Ot S09.90XA UNSPECIFIED INJURY OF HEAD, INITIAL ENCO 01/03/2017 DOMÍNGUEZZHANE TRACYE Paulette MEDICAL BILLING SERVICE Ot X58.XXXA EXPOSURE TO OTHER SPECIFIED FACTORS, INI 01/03/2017 LING DOMÍNGUEZ MEDICAL BILLING SERVICE Ot Y99.8 OTHER EXTERNAL CAUSE STATUS 01/05/2017 LELAND BIRD Ot E66.9 OBESITY, UNSPECIFIED 01/05/2017 LELAND BIRD Ot E78.2 MIXED HYPERLIPIDEMIA 01/05/2017 LELAND BIRD Ot I10 ESSENTIAL (PRIMARY) HYPERTENSION 01/05/2017 LELAND BIRD Ot I48.0 PAROXYSMAL ATRIAL FIBRILLATION 02/23/2017 DOMÍNGUEZZHANE TRACYE Paulette MEDICAL BILLING SERVICE Ot M16.12 UNILATERAL PRIMARY OSTEOARTHRITIS, LEFT 02/23/2017 DOMÍNGUEZZHANE TRACYE Paulette MEDICAL BILLING SERVICE Ot M43.16 SPONDYLOLISTHESIS, LUMBAR REGION 02/23/2017 DOMÍNGUEZLING MEDICAL BILLING SERVICE Ot R11.10 VOMITING, UNSPECIFIED 02/23/2017 LING DOMÍNGUEZ MEDICAL BILLING SERVICE Ot R51 HEADACHE 02/23/2017 LING DOMÍNGUEZ MEDICAL BILLING SERVICE Ot S09.90XA UNSPECIFIED INJURY OF HEAD, INITIAL ENCO 02/23/2017 LING DOMÍNGUEZ MEDICAL BILLING SERVICE Ot X58.XXXA EXPOSURE TO OTHER SPECIFIED FACTORS, INI 02/23/2017 LING DOMÍNGUEZ MEDICAL BILLING SERVICE Ot Y99.8 OTHER EXTERNAL CAUSE STATUS 02/23/2017 SHERI GLASS DO Ot E11.9 TYPE 2 DIABETES MELLITUS WITHOUT COMPLIC 02/23/2017 MARIA LUISA ENRRIQUE PANGA K Ot E66.01 MORBID (SEVERE) OBESITY DUE TO EXCESS CA 02/23/2017 SHERI GLASS DO Ot E78.00 PURE HYPERCHOLESTEROLEMIA, UNSPECIFIED 02/23/2017 MARIA LUISA SHERI PANG Ot F31.9 BIPOLAR DISORDER, UNSPECIFIED 02/23/2017 MARIA LUISA SHERI PANG Ot F41.9 ANXIETY DISORDER, UNSPECIFIED 02/23/2017 MARIA LUISA SHERI PANG Ot G43.909 MIGRAINE, UNSP, NOT INTRACTABLE, WITHOUT 02/23/2017 MARIA LUISA ENRRIQUE PANGA K Ot G47.30 SLEEP APNEA, UNSPECIFIED 02/23/2017 ENRRIQUE GLASS DOA Suyapa Ot I11.0 HYPERTENSIVE HEART DISEASE WITH HEART FA 02/23/2017 SHERI GLASS DO Ot I48.91 UNSPECIFIED ATRIAL FIBRILLATION 02/23/2017 SHERI GLASS DO Ot I50.9 HEART FAILURE, UNSPECIFIED 02/23/2017 SHERI GLASS DO Ot K21.9 GASTRO-ESOPHAGEAL REFLUX DISEASE WITHOUT 02/23/2017 MARIA LUISA SHERI PANG Ot M19.90 UNSPECIFIED OSTEOARTHRITIS, UNSPECIFIED 02/23/2017 MARIA LUISA SHERI PANG Ot N20.1 CALCULUS OF URETER 02/23/2017 SHERI GLASS DO Ot R10.84 GENERALIZED ABDOMINAL PAIN 02/23/2017 SHERI GLASS DO Ot Z79.82 DETENTION (CURRENT) USE OF ASPIRIN 02/23/2017 SHERI GLASS DO Ot Z82.49 FAMILY HX OF ISCHEM HEART DIS AND OTH DI 02/23/2017 SHERI GLASS DO Ot Z87.19 PERSONAL HISTORY OF OTHER DISEASES OF TH 02/23/2017 SHERI GLASS DO, Ot Z87.440 PERSONAL HISTORY OF URINARY (TRACT) INFE 02/23/2017 SHERI GLASS DO Suyapa Ot Z87.442 PERSONAL HISTORY OF URINARY CALCULI 02/23/2017 SHERI GLASS DO Ot Z90.710 ACQUIRED ABSENCE OF BOTH CERVIX AND UTER 04/21/2017 DOMÍNGUEZ, LING Humphrey MEDICAL BILLING SERVICE Ot M16.12 UNILATERAL PRIMARY OSTEOARTHRITIS, LEFT 04/21/2017 DOMÍNGUEZ, LING Humphrey MEDICAL BILLING SERVICE Ot M43.16 SPONDYLOLISTHESIS, LUMBAR REGION 04/21/2017 DOMÍNGUEZ, LING A MEDICAL BILLING SERVICE Ot R11.10 VOMITING, UNSPECIFIED 04/21/2017 DOMÍNGUEZ, LING A MEDICAL BILLING SERVICE Ot R51 HEADACHE 04/21/2017 DOMÍNGUEZ, LING A MEDICAL BILLING SERVICE Ot S09.90XA UNSPECIFIED INJURY OF HEAD, INITIAL ENCO 04/21/2017 DOMÍNGUEZ, LING A MEDICAL BILLING SERVICE Ot X58.XXXA EXPOSURE TO OTHER SPECIFIED FACTORS, INI 04/21/2017 DOMÍNGUEZ, LING A MEDICAL BILLING SERVICE Ot Y99.8 OTHER EXTERNAL CAUSE STATUS 07/14/2017 DOMÍNGUEZ, LING Paulette MEDICAL BILLING SERVICE Ot M16.12 UNILATERAL PRIMARY OSTEOARTHRITIS, LEFT 07/14/2017 DOMÍNGUEZ, LING A MEDICAL BILLING SERVICE Ot M43.16 SPONDYLOLISTHESIS, LUMBAR REGION 07/14/2017 DOMÍNGUEZ, LING A MEDICAL BILLING SERVICE Ot R11.10 VOMITING, UNSPECIFIED 07/14/2017 DOMÍNGUEZ, LING A MEDICAL BILLING SERVICE Ot R51 HEADACHE 07/14/2017 DOMÍNGUEZ, LING A MEDICAL BILLING SERVICE Ot S09.90XA UNSPECIFIED INJURY OF HEAD, INITIAL ENCO 07/14/2017 DOMÍNGUEZ, LING A MEDICAL BILLING SERVICE Ot X58.XXXA EXPOSURE TO OTHER SPECIFIED FACTORS, INI 07/14/2017 DOMÍNGUEZ, LING A MEDICAL BILLING SERVICE Ot Y99.8 OTHER EXTERNAL CAUSE STATUS 08/18/2017 DOMÍNGUEZ, LING A MEDICAL BILLING SERVICE Ot M16.12 UNILATERAL PRIMARY OSTEOARTHRITIS, LEFT 08/18/2017 DOMÍNGUEZ, LING A MEDICAL BILLING SERVICE Ot M43.16 SPONDYLOLISTHESIS, LUMBAR REGION 08/18/2017 DOMÍNGUEZ, LING A MEDICAL BILLING SERVICE Ot R11.10 VOMITING, UNSPECIFIED 08/18/2017 DOMÍNGUEZ, LING A MEDICAL BILLING SERVICE Ot R51 HEADACHE 08/18/2017 LING DOMÍNGUEZ MEDICAL BILLING SERVICE Ot S09.90XA UNSPECIFIED INJURY OF HEAD, INITIAL ENCO 08/18/2017 LING DOMÍNGUEZ MEDICAL BILLING SERVICE Ot X58.XXXA EXPOSURE TO OTHER SPECIFIED FACTORS, INI 08/18/2017 LING DOMÍNGUEZ MEDICAL BILLING SERVICE Ot Y99.8 OTHER EXTERNAL CAUSE STATUS 08/19/2017 TA WALDROP MD Ot E11. 9 TYPE 2 DIABETES MELLITUS WITHOUT COMPLIC 08/19/2017 TA WALDROP MD Ot E78. 5 HYPERLIPIDEMIA, UNSPECIFIED 08/19/2017 TA WALDROP MD Ot I10 ESSENTIAL (PRIMARY) HYPERTENSION 08/19/2017 TA WALDROP MD Ot I48. 91 UNSPECIFIED ATRIAL FIBRILLATION 08/19/2017 TA WALDROP MD Ot R00. 2 PALPITATIONS 08/24/2017 TA WALDROP MD Ot E11. 9 TYPE 2 DIABETES MELLITUS WITHOUT COMPLIC 08/24/2017 TA WALDROP MD Ot E78. 5 HYPERLIPIDEMIA, UNSPECIFIED 08/24/2017 TA WALDROP MD Ot I10 ESSENTIAL (PRIMARY) HYPERTENSION 08/24/2017 TA WALDROP MD Ot I48. 91 UNSPECIFIED ATRIAL FIBRILLATION 08/24/2017 TA WALDROP MD Ot R00. 2 PALPITATIONS 09/20/2017 TA WALDROP MD Ot E11. 9 TYPE 2 DIABETES MELLITUS WITHOUT COMPLIC 09/20/2017 TA WALDROP MD Ot E78. 5 HYPERLIPIDEMIA, UNSPECIFIED 09/20/2017 TA WALDROP MD Ot I10 ESSENTIAL (PRIMARY) HYPERTENSION 09/20/2017 TA WALDROP MD Ot I48. 91 UNSPECIFIED ATRIAL FIBRILLATION 09/20/2017 TA WALDROP MD Ot R00. 2 PALPITATIONS 11/24/2017 TA WALDROP MD Ot E11. 9 TYPE 2 DIABETES MELLITUS WITHOUT COMPLIC 11/24/2017 TA WALDROP MD Ot E78. 5 HYPERLIPIDEMIA, UNSPECIFIED 11/24/2017 TA WALDROP MD J Ot I10 ESSENTIAL (PRIMARY) HYPERTENSION 11/24/2017 TA WALDROP MD Ot I48. 91 UNSPECIFIED ATRIAL FIBRILLATION 11/24/2017 TA WALDROP MD Ot R00. 2 PALPITATIONS 11/24/2017 TA WALDROP MD Ot E11. 9 TYPE 2 DIABETES MELLITUS WITHOUT COMPLIC 11/24/2017 TA WALDROP MD Ot E78. 5 HYPERLIPIDEMIA, UNSPECIFIED 11/24/2017 TA WALDROP MD Ot I10 ESSENTIAL (PRIMARY) HYPERTENSION 11/24/2017 TA WALDROP MD Ot I48. 91 UNSPECIFIED ATRIAL FIBRILLATION 11/24/2017 TA WALDROP MD Ot R00. 2 PALPITATIONS 11/24/2017 TA WALDROP MD Ot E11. 9 TYPE 2 DIABETES MELLITUS WITHOUT COMPLIC 11/24/2017 TA WALDROP MD Ot E78. 5 HYPERLIPIDEMIA, UNSPECIFIED 11/24/2017 TA WALDROP MD Ot I10 ESSENTIAL (PRIMARY) HYPERTENSION 11/24/2017 TA WALDROP MD Ot I48. 91 UNSPECIFIED ATRIAL FIBRILLATION 11/24/2017 TA WALDROP MD Ot R00. 2 PALPITATIONS 11/25/2017 ADAM PANG BAR Ot E11.59 TYPE 2 DIABETES MELLITUS WITH OTH CIRCUL 11/25/2017 ADAM PANG BAR Ot E66.01 MORBID (SEVERE) OBESITY DUE TO EXCESS CA 11/25/2017 ADAM DO BAR Ot E78.5 HYPERLIPIDEMIA, UNSPECIFIED 11/25/2017 ADAM DO BAR Ot F31.9 BIPOLAR DISORDER, UNSPECIFIED 11/25/2017 ADAM DO BAR Ot F41.9 ANXIETY DISORDER, UNSPECIFIED 11/25/2017 ADAM DO BAR Ot G47.33 OBSTRUCTIVE SLEEP APNEA (ADULT) (PEDIATR 11/25/2017 ADAM DO BAR Ot G47.50 PARASOMNIA, UNSPECIFIED 11/25/2017 ADAM DO BAR Ot I08.1 RHEUMATIC DISORDERS OF BOTH MITRAL AND T 11/25/2017 MEDINA DO, BAR Ot I10 ESSENTIAL (PRIMARY) HYPERTENSION 11/25/2017 ADAM DO BAR Ot I48.0 PAROXYSMAL ATRIAL FIBRILLATION 11/25/2017 ADAM DO BAR Ot I49.3 VENTRICULAR PREMATURE DEPOLARIZATION 11/25/2017 ADAM DO BAR Ot 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 11/25/2017 ADAM DO BAR Ot J44.9 CHRONIC OBSTRUCTIVE PULMONARY DISEASE, U 11/25/2017 ADAM DO BAR Ot R00.2 PALPITATIONS 11/25/2017 IRLANDA MEDINA DOI Ot R09.02 HYPOXEMIA 11/25/2017 ADAM PANG BAR Ot Z68.42 BODY MASS INDEX (BMI) 45.0-49.9, ADULT 11/25/2017 BAR MEDINA DO Ot Z79.89 9 OTHER DETENTION (CURRENT) DRUG THERAPY 12/26/2017 LING DOMÍNGUEZ MEDICAL BILLING SERVICE Ot M16.12 UNILATERAL PRIMARY OSTEOARTHRITIS, LEFT 12/26/2017 DOMNÍGUEZ, LING Humphrey MEDICAL BILLING SERVICE Ot M43.16 SPONDYLOLISTHESIS, LUMBAR REGION 12/26/2017 DOMÍNGUEZ, LING Humphrey MEDICAL BILLING SERVICE Ot R11.10 VOMITING, UNSPECIFIED 12/26/2017 DOMÍNGUEZ, LING Paulette MEDICAL BILLING SERVICE Ot R51 HEADACHE 12/26/2017 DOMÍNGUEZ, LING Humphrey MEDICAL BILLING SERVICE Ot S09.90XA UNSPECIFIED INJURY OF HEAD, INITIAL ENCO 12/26/2017 CATRACHITA, LING Humphrey MEDICAL BILLING SERVICE Ot X58.XXXA EXPOSURE TO OTHER SPECIFIED FACTORS, INI 12/26/2017 DOMÍNGUEZ, LING Humphrey MEDICAL BILLING SERVICE Ot Y99.8 OTHER EXTERNAL CAUSE STATUS 12/26/2017 DOMÍNGUEZ, LING Humphrey MEDICAL BILLING SERVICE Ot M16.12 UNILATERAL PRIMARY OSTEOARTHRITIS, LEFT 12/26/2017 DOMÍNGUEZ, LING Humphrey MEDICAL BILLING SERVICE Ot M43.16 SPONDYLOLISTHESIS, LUMBAR REGION 12/26/2017 DOMÍNGUEZ, LING Humphrey MEDICAL BILLING SERVICE Ot R11.10 VOMITING, UNSPECIFIED 12/26/2017 DOMÍNGUEZ, LING Humphrey MEDICAL BILLING SERVICE Ot R51 HEADACHE 12/26/2017 DOMÍNGUEZ, LING Humphrey MEDICAL BILLING SERVICE Ot S09.90XA UNSPECIFIED INJURY OF HEAD, INITIAL ENCO 12/26/2017 DOMÍNGUEZ, LING Humphrey MEDICAL BILLING SERVICE Ot X58.XXXA EXPOSURE TO OTHER SPECIFIED FACTORS, INI 12/26/2017 DOMÍNGUEZ, LING Humphrey MEDICAL BILLING SERVICE Ot Y99.8 OTHER EXTERNAL CAUSE STATUS 08/29/2018 TA WALDROP MD Ot E11. 9 TYPE 2 DIABETES MELLITUS WITHOUT COMPLIC 08/29/2018 TA WALDROP MD Ot E78. 5 HYPERLIPIDEMIA, UNSPECIFIED 08/29/2018 TA WALDROP MD Ot I10 ESSENTIAL (PRIMARY) HYPERTENSION 08/29/2018 TA WALDROP MD Ot I48. 91 UNSPECIFIED ATRIAL FIBRILLATION 08/29/2018 BENJIE LIGN, TA Ortega Ot R00. 2 PALPITATIONS 05/24/2019 BERNVALERY GILBERT Ot E11.9 TYPE 2 DIABETES MELLITUS WITHOUT COMPLIC 05/24/2019 BERNVALERY GILBERT Ot E66.01 MORBID (SEVERE) OBESITY DUE TO EXCESS CA 05/24/2019 BERNVALERY GILBERT Ot E78.00 PURE HYPERCHOLESTEROLEMIA, UNSPECIFIED 05/24/2019 BERNOT GILBERT Ot F31.9 BIPOLAR DISORDER, UNSPECIFIED 05/24/2019 BERNOT GILBERT Ot F41.9 ANXIETY DISORDER, UNSPECIFIED 05/24/2019 BERNOT GILBERT Ot G43.909 MIGRAINE, UNSP, NOT INTRACTABLE, WITHOUT 05/24/2019 BERNOT GILBERT Ot I11.0 HYPERTENSIVE HEART DISEASE WITH HEART FA 05/24/2019 MARIAH SYKESIS Ot I48.91 UNSPECIFIED ATRIAL FIBRILLATION 05/24/2019 MARIAH SYKESIS Ot I50.9 HEART FAILURE, UNSPECIFIED 05/24/2019 MARIAH SYKESIS Ot K21.9 GASTRO-ESOPHAGEAL REFLUX DISEASE WITHOUT 05/24/2019 MARIAH SYKESIS Ot M79.7 FIBROMYALGIA 05/24/2019 MARIAH SYKESIS Ot N39.0 URINARY TRACT INFECTION, SITE NOT SPECIF 05/24/2019 MARIAH SYKESIS Ot R10.9 UNSPECIFIED ABDOMINAL PAIN 05/24/2019 MARIAH SYKESIS Ot Z68.42 BODY MASS INDEX (BMI) 45.0-49.9, ADULT 05/24/2019 ONEL GILBERT Ot Z79.82 DETENTION (CURRENT) USE OF ASPIRIN 05/24/2019 ONEL GILBERT Ot Z79.84 BLENDER OPERATOR (CURRENT) USE OF ORAL HYPOGLYC 05/24/2019 ONEL GILBERT Ot Z82.49 FAMILY HX OF ISCHEM HEART DIS AND OTH DI 05/24/2019 MARIAH SYKESIS Ot Z87.442 PERSONAL HISTORY OF URINARY CALCULI 05/24/2019 MARIAH SYKESIS Ot Z88.5 ALLERGY STATUS TO NARCOTIC AGENT STATUS 05/24/2019 BERNVALERY GILBERT Ot Z90.49 ACQUIRED ABSENCE OF OTHER SPECIFIED PART 05/24/2019 BERNVALERY GILBERT Ot Z90.710 ACQUIRED ABSENCE OF BOTH CERVIX AND UTER 05/29/2019 ONEL GILBERT Ot E11.9 TYPE 2 DIABETES MELLITUS WITHOUT COMPLIC 05/29/2019 BERNOT, GILBERT Ot E66.01 MORBID (SEVERE) OBESITY DUE TO EXCESS CA 05/29/2019 BERNOT, GILBERT Ot E78.00 PURE HYPERCHOLESTEROLEMIA, UNSPECIFIED 05/29/2019 BERNOT, GILBERT Ot F31.9 BIPOLAR DISORDER, UNSPECIFIED 05/29/2019 BERNOT, GILBERT Ot F41.9 ANXIETY DISORDER, UNSPECIFIED 05/29/2019 BERNOT, GILBERT Ot G43.909 MIGRAINE, UNSP, NOT INTRACTABLE, WITHOUT 05/29/2019 BERNOT, GILBERT Ot I11.0 HYPERTENSIVE HEART DISEASE WITH HEART FA 05/29/2019 BERNOT, GILBERT Ot I48.91 UNSPECIFIED ATRIAL FIBRILLATION 05/29/2019 BERNOT, GILBERT Ot I50.9 HEART FAILURE, UNSPECIFIED 05/29/2019 BERNOT, GILBERT Ot K21.9 GASTRO-ESOPHAGEAL REFLUX DISEASE WITHOUT 05/29/2019 BERNOT, GILBERT Ot M79.7 FIBROMYALGIA 05/29/2019 BERNVALERY GILBERT Ot N39.0 URINARY TRACT INFECTION, SITE NOT SPECIF 05/29/2019 BERNOT GILBERT Ot R10.9 UNSPECIFIED ABDOMINAL PAIN 05/29/2019 BERNVALERY GILBERT Ot Z68.42 BODY MASS INDEX (BMI) 45.0-49.9, ADULT 05/29/2019 BERNOT, GILBERT Ot Z79.82 DETENTION (CURRENT) USE OF ASPIRIN 05/29/2019 BERNOT, GILBERT Ot Z79.84 DETENTION (CURRENT) USE OF ORAL HYPOGLYC 05/29/2019 ONEL, GILBERT Ot Z82.49 FAMILY HX OF ISCHEM HEART DIS AND OTH DI 05/29/2019 BERNVALERY GILBERT Ot Z87.442 PERSONAL HISTORY OF URINARY CALCULI 05/29/2019 BERNVALERY GILBERT Ot Z88.5 ALLERGY STATUS TO NARCOTIC AGENT STATUS 05/29/2019 BERNOT, GILBERT Ot Z90.49 ACQUIRED ABSENCE OF OTHER SPECIFIED PART 05/29/2019 BERNOT, GILBERT Ot Z90.710 ACQUIRED ABSENCE OF BOTH CERVIX AND UTER 06/05/2019 TA WALDROP MD Ot E11. 9 TYPE 2 DIABETES MELLITUS WITHOUT COMPLIC 06/05/2019 TA WALDROP MD Ot E78. 5 HYPERLIPIDEMIA, UNSPECIFIED 06/05/2019 TA WALDROP MD Ot I10 ESSENTIAL (PRIMARY) HYPERTENSION 06/05/2019 BENJIE LING, TA Ortega Ot I48. 91 UNSPECIFIED ATRIAL FIBRILLATION 06/05/2019 BENJIE LING, TA Ortega Ot R00. 2 PALPITATIONS 06/05/2019 FLAQUITO LING, TAYE Pro Ot Z01.89 ENCOUNTER FOR OTHER SPECIFIED SPECIAL EX 06/21/2019 FLAQUITO LING, TAYE Pro Ot Z01.89 ENCOUNTER FOR OTHER SPECIFIED SPECIAL EX 07/02/2019 CATRACHITA, LING Humphrey [facility] Ot M16.12 UNILATERAL PRIMARY OSTEOARTHRITIS, LEFT 07/02/2019 DOMÍNGUEZ, LING [facility]rey [facility] Ot M43.16 SPONDYLOLISTHESIS, LUMBAR REGION 07/02/2019 DOMÍNGUEZ, LING Humphrey [facility] Ot R11.10 VOMITING, UNSPECIFIED 07/02/2019 DOMÍNGUEZ, LING Paulette [facility] Ot R51 HEADACHE 07/02/2019 DOMÍNGUEZ, LING Paulette [facility] Ot S09.90XA UNSPECIFIED INJURY OF HEAD, INITIAL ENCO 07/02/2019 LING DOMÍNGUEZ [facility] Ot X58.XXXA EXPOSURE TO OTHER SPECIFIED FACTORS, INI 07/02/2019 CATRACHITA, LING Humphrey [facility] Ot Y99.8 OTHER EXTERNAL CAUSE STATUS 07/27/2019 PAMELA MARIO MD Ot K57.30 DVRTCLOS OF LG INT W/O PERFORATION OR AB 07/27/2019 PAMELA MARIO MD Ot 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 Results Test Result Range Complete blood count (CBC) with automate d white blood cell (WBC) differential - 02/14/16 10:15 Blood leukocytes automated count (number/volume) 13.1 10*3/uL 4.3-11.0 Blood erythrocytes automated count (number/volume) 4.91 10*6/uL 4.35-5.85 Venous blood hemoglobin measurement (mass/volume) 14.9 g/dL 11.5-16.0 Blood hematocrit (volume fraction) 45 % 35-52 Automated erythrocyte mean corpuscular volume 91 [ foz_us] 80-99 Automated erythrocyte mean corpuscular h emoglobin (mass per erythrocyte) 30 pg 25-34 Automated erythrocyte mean corpuscular h emoglobin concentration measurement (mass/volume) 34 g/dL 32-36 Automated erythrocyte distribution width ratio 13. 7 % 10.0- 14.5 Automated blood platelet count (count/volume) 230 10*3/uL 130-400 Automated blood platelet mean volume measurement 10.2 [foz_us] 7.4-10.4 Automated blood neutrophils/100 leukocytes 87 % 42-75 Automated blood lymphocytes/100 leukocytes 8 % 12-44 Blood monocytes/100 leukocytes 4 % 0-12 Automated blood eosinophils/100 leukocytes 0 % 0-10 Automated blood basophils/100 leukocytes 0 % 0-10 Blood neutrophils automated count (number/volume) 11.4 10*3 1.8-7.8 Blood lymphocytes automated count (number/volume) 1.1 10*3 1.0-4.0 Blood monocytes automated count (number/volume) 0. 5 10*3 0.0-1.0 Automated eosinophil count 0.0 10*3/uL 0 .0-0.3 Automated blood basophil count (count/volume) 0.0 10*3/uL 0.0-0.1 Lipase - 02/14/16 10:15 Lipase 44 U/L 8-78 Comprehensive metabolic panel - 02/14/16 10:15 Serum or plasma sodium measurement (moles/volume) 138 mmol/L 135-145 Serum or plasma potassium measurement (moles/volume) 4.2 mmol/L 3.6-5.0 Serum or plasma chloride measurement (moles/volume) 107 mmol/L 98-107 Carbon dioxide 20 mmol/L 21-32 Serum or plasma anion gap determination (moles/volume) 11 mmol/L 5-14 Serum or plasma urea nitrogen measurement (mass/volume ) 22 mg/dL 7-18 Serum or plasma creatinine measurement (mass/volume) 0.90 mg/dL 0.60-1.30 Serum or plasma urea nitrogen/creatinine mass ratio 24 NRG Serum or plasma creatinine measurement w ith calculation of estimated glomerular filtration rate > NRG Serum or plasma glucose measurement (mass/volume) 127 mg/dL 70-105 Serum or plasma calcium measurement (mass/volume) 9.2 mg/dL 8.5-10.1 Serum or plasma total bilirubin measurement (mass/volu me) 0.4 mg/dL 0.1-1.0 Serum or plasma alkaline phosphatase pat surement (enzymatic activity/volume) 58 U/L 40-136 Serum or plasma aspartate aminotransfera se measurement (enzymatic activity/volume) 21 U/L 5-34 Serum or plasma alanine aminotransferase measurement (enzymatic activity/volume) 14 U/L 0-55 Serum or plasma protein measurement (mass/volume) 6.9 g/dL 6.4-8.2 Serum or plasma albumin measurement (mass/volume) 4.2 g/dL 3.2-4.5 Complete urinalysis with reflex to cultu re - 02/14/16 11:40 Urine color determination YELLOW NRG Urine clarity determination VERY CLOUDY NRG Urine pH measurement by test strip 8 5-9 Specific gravity of urine by test strip 1.015 1.016-1.022 Urine protein assay by test strip, semi-quantitative NEGATIVE NEGATIVE Urine glucose detection by automated test strip NE GATIVE NEGATIVE Erythrocytes detection in urine sediment by light micr oscopy NEGATIVE NEGATIVE Urine ketones detection by automated test strip NE GATIVE NEGATIVE Urine nitrite detection by test strip NEGATIVE NEGATIVE Urine total bilirubin detection by test strip NEGA TIVE NEGATIVE Urine urobilinogen measurement by automated test strip (mass/volume) NORMAL NORMAL Urine leukocyte esterase detection by dipstick 2+ NEGATIVE Automated urine sediment erythrocyte cou nt by microscopy (number/high power field) NONE NRG Automated urine sediment leukocyte count by microscopy (number/high power field) [HPF] NRG Bacteria detection in urine sediment by light microsco py FEW NRG Squamous epithelial cells detection in u rine sediment by light microscopy NONE NRG Crystals detection in urine sediment by light microsco py PRESENT NRG Casts detection in urine sediment by light microscopy NONE NRG Mucus detection in urine sediment by light microscopy NEGATIVE NRG Complete urinalysis with reflex to culture YES NRG Amorphous sediment detection in urine sediment by ligh t microscopy LARGE CHASTITY URATES NRG Bacterial urine culture - 02/14/16 11:40 URINE CULTURE RESULTS <10,000/ML NRG Capillary blood glucose measurement by g lucometer (mass/volume) - 02/14/16 21:18 Capillary blood glucose measurement by glucometer (mas s/volume) 137 mg/dL 70-110 Capillary blood glucose measurement by g lucometer (mass/volume) - 02/15/16 06:21 Capillary blood glucose measurement by glucometer (mas s/volume) 116 mg/dL 70-110 Capillary blood glucose measurement by g lucometer (mass/volume) - 02/15/16 10:38 Capillary blood glucose measurement by glucometer (mas s/volume) 100 mg/dL 70-110 Serum Mycoplasma pneumoniae antibody det ection - 06/18/16 14:50 Pleural fluid Mycoplasma pneumoniae IgG antibody titer by immunofluorescence <1:32 Mycoplasma pneumoniae IgM ab [presence] in serum by immunofluorescence <1:10 <1:10 Myocardium ab pattern [interpretation] in serum See Footnote NRG Complete blood count (CBC) with automate d white blood cell (WBC) differential - 10/27/16 15:21 Blood leukocytes automated count (number/volume) 10.9 10*3/uL 4.3-11.0 Blood erythrocytes automated count (number/volume) 4.71 10*6/uL 4.35-5.85 Venous blood hemoglobin measurement (mass/volume) 14.0 g/dL 11.5-16.0 Blood hematocrit (volume fraction) 44 % 35-52 Automated erythrocyte mean corpuscular volume 93 [ foz_us] 80-99 Automated erythrocyte mean corpuscular h emoglobin (mass per erythrocyte) 30 pg 25-34 Automated erythrocyte mean corpuscular h emoglobin concentration measurement (mass/volume) 32 g/dL 32-36 Automated erythrocyte distribution width ratio 13. 6 % 10.0- 14.5 Automated blood platelet count (count/volume) 317 10*3/uL 130-400 Automated blood platelet mean volume measurement 10.8 [foz_us] 7.4-10.4 Automated blood neutrophils/100 leukocytes 80 % 42-75 Automated blood lymphocytes/100 leukocytes 15 % 12-44 Blood monocytes/100 leukocytes 6 % 0-12 Automated blood eosinophils/100 leukocytes 0 % 0-10 Automated blood basophils/100 leukocytes 0 % 0-10 Blood neutrophils automated count (number/volume) 8.6 10*3 1.8-7.8 Blood lymphocytes automated count (number/volume) 1.6 10*3 1.0-4.0 Blood monocytes automated count (number/volume) 0. 6 10*3 0.0-1.0 Automated eosinophil count 0.0 10*3/uL 0 .0-0.3 Automated blood basophil count (count/volume) 0.0 10*3/uL 0.0-0.1 Serum or plasma uric acid measurement (m ass/volume) - 10/27/16 15:21 Serum or plasma uric acid measurement (mass/volume) 5.3 mg/dL 2.6-7.2 Erythrocyte sedimentation rate by unique gren method - 10/27/16 15:21 Erythrocyte sedimentation rate by westergren method 12 mm 0- 30 Serum or plasma rheumatoid factor measur ement (units/volume) - 10/27/16 15:21 Serum or plasma rheumatoid factor measurement (units/v olume) NEGATIVE NEGATIVE [id number] - 10/27/16 15:21 Screening antinuclear antibody (ELICEO) assay by enzyme i mmunoassay <1:80 <1:80 Cyanocobalamin measurement - 10/27/16 15 :21 Vitamin B12 610 pg/mL 200-1000 Complete urinalysis with reflex to cultu re - 02/23/17 04:02 Urine color determination YELLOW NRG Urine clarity determination VERY CLOUDY NRG Urine pH measurement by test strip 8 5-9 Specific gravity of urine by test strip 1.015 1.016-1.022 Urine protein assay by test strip, semi-quantitative NEGATIVE NEGATIVE Urine glucose detection by automated test strip NE GATIVE NEGATIVE Erythrocytes detection in urine sediment by light micr oscopy 1+ NEGATIVE Urine ketones detection by automated test strip NE GATIVE NEGATIVE Urine nitrite detection by test strip NEGATIVE NEGATIVE Urine total bilirubin detection by test strip NEGA TIVE NEGATIVE Urine urobilinogen measurement by automated test strip (mass/volume) NORMAL NORMAL Urine leukocyte esterase detection by dipstick 3+ NEGATIVE Automated urine sediment erythrocyte cou nt by microscopy (number/high power field) [HPF] NRG Automated urine sediment leukocyte count by microscopy (number/high power field) [HPF] NRG Bacteria detection in urine sediment by light microsco py TRACE NRG Squamous epithelial cells detection in u rine sediment by light microscopy RARE NRG Crystals detection in urine sediment by light microsco py PRESENT NRG Casts detection in urine sediment by light microscopy NONE NRG Mucus detection in urine sediment by light microscopy NEGATIVE NRG Complete urinalysis with reflex to culture NO NRG Amorphous sediment detection in urine sediment by ligh t microscopy LARGE CHASTITY PHOSPHATE NRG Complete blood count (CBC) with automate d white blood cell (WBC) differential - 02/23/17 04:17 Blood leukocytes automated count (number/volume) 10.9 10*3/uL 4.3-11.0 Blood erythrocytes automated count (number/volume) 4.77 10*6/uL 4.35-5.85 Venous blood hemoglobin measurement (mass/volume) 14.3 g/dL 11.5-16.0 Blood hematocrit (volume fraction) 44 % 35-52 Automated erythrocyte mean corpuscular volume 93 [ foz_us] 80-99 Automated erythrocyte mean corpuscular h emoglobin (mass per erythrocyte) 30 pg 25-34 Automated erythrocyte mean corpuscular h emoglobin concentration measurement (mass/volume) 32 g/dL 32-36 Automated erythrocyte distribution width ratio 13. 3 % 10.0- 14.5 Automated blood platelet count (count/volume) 234 10*3/uL 130-400 Automated blood platelet mean volume measurement 10.4 [foz_us] 7.4-10.4 Automated blood neutrophils/100 leukocytes 81 % 42-75 Automated blood lymphocytes/100 leukocytes 11 % 12-44 Blood monocytes/100 leukocytes 7 % 0-12 Automated blood eosinophils/100 leukocytes 1 % 0-10 Automated blood basophils/100 leukocytes 1 % 0-10 Blood neutrophils automated count (number/volume) 8.9 10*3 1.8-7.8 Blood lymphocytes automated count (number/volume) 1.2 10*3 1.0-4.0 Blood monocytes automated count (number/volume) 0. 8 10*3 0.0-1.0 Automated eosinophil count 0.1 10*3/uL 0 .0-0.3 Automated blood basophil count (count/volume) 0.1 10*3/uL 0.0-0.1 Comprehensive metabolic panel - 02/23/17 04:17 Serum or plasma sodium measurement (moles/volume) 140 mmol/L 135-145 Serum or plasma potassium measurement (moles/volume) 4.5 mmol/L 3.6-5.0 Serum or plasma chloride measurement (moles/volume) 107 mmol/L 98-107 Carbon dioxide 23 mmol/L 21-32 Serum or plasma anion gap determination (moles/volume) 10 mmol/L 5-14 Serum or plasma urea nitrogen measurement (mass/volume ) 26 mg/dL 7-18 Serum or plasma creatinine measurement (mass/volume) 1.29 mg/dL 0.60-1.30 Serum or plasma urea nitrogen/creatinine mass ratio 20 NRG Serum or plasma creatinine measurement w ith calculation of estimated glomerular filtration rate 42 NRG Serum or plasma glucose measurement (mass/volume) 123 mg/dL 70-105 Serum or plasma calcium measurement (mass/volume) 9.1 mg/dL 8.5-10.1 Serum or plasma total bilirubin measurement (mass/volu me) 0.4 mg/dL 0.1-1.0 Serum or plasma alkaline phosphatase pat surement (enzymatic activity/volume) 49 U/L 40-136 Serum or plasma aspartate aminotransfera se measurement (enzymatic activity/volume) 17 U/L 5-34 Serum or plasma alanine aminotransferase measurement (enzymatic activity/volume) 12 U/L 0-55 Serum or plasma protein measurement (mass/volume) 6.2 g/dL 6.4-8.2 Serum or plasma albumin measurement (mass/volume) 3.8 g/dL 3.2-4.5 Serum or plasma amylase measurement (enz ymatic activity/volume) - 02/23/17 04:17 Serum or plasma amylase measurement (enzymatic activit y/volume) 38 U/L 25-125 Lipase - 02/23/17 04:17 Lipase 80 U/L 8-78 Complete blood count (CBC) with automate d white blood cell (WBC) differential - 11/24/17 19:15 Blood leukocytes automated count (number/volume) 8.6 10*3/uL 4.3-11.0 Blood erythrocytes automated count (number/volume) 4.78 10*6/uL 4.35-5.85 Venous blood hemoglobin measurement (mass/volume) 14.3 g/dL 11.5-16.0 Blood hematocrit (volume fraction) 44 % 35-52 Automated erythrocyte mean corpuscular volume 91 [ foz_us] 80-99 Automated erythrocyte mean corpuscular h emoglobin (mass per erythrocyte) 30 pg 25-34 Automated erythrocyte mean corpuscular h emoglobin concentration measurement (mass/volume) 33 g/dL 32-36 Automated erythrocyte distribution width ratio 13. 8 % 10.0- 14.5 Automated blood platelet count (count/volume) 272 10*3/uL 130-400 Automated blood platelet mean volume measurement 10.3 [foz_us] 7.4-10.4 Automated blood neutrophils/100 leukocytes 54 % 42-75 Automated blood lymphocytes/100 leukocytes 35 % 12-44 Blood monocytes/100 leukocytes 9 % 0-12 Automated blood eosinophils/100 leukocytes 2 % 0-10 Automated blood basophils/100 leukocytes 1 % 0-10 Blood neutrophils automated count (number/volume) 4.6 10*3 1.8-7.8 Blood lymphocytes automated count (number/volume) 3.0 10*3 1.0-4.0 Blood monocytes automated count (number/volume) 0. 8 10*3 0.0-1.0 Automated eosinophil count 0.1 10*3/uL 0 .0-0.3 Automated blood basophil count (count/volume) 0.0 10*3/uL 0.0-0.1 PT panel in platelet poor plasma by coag ulation assay - 11/24/17 19:15 Prothrombin time (PT) in platelet poor plasma by coagu lation assay 13.1 s 12.2-14.7 INR in platelet poor plasma or blood by coagulation as say 1.0 0.8-1.4 Activated partial thromboplastin time (a PTT) in platelet poor plasma bycoagulation assay - 11/24/17 19:15 Activated partial thromboplastin time (a PTT) in platelet poor plasma bycoagulation assay 28 s 24-35 Comprehensive metabolic panel - 11/24/17 19:15 Serum or plasma sodium measurement (moles/volume) 139 mmol/L 135-145 Serum or plasma potassium measurement (moles/volume) 4.1 mmol/L 3.6-5.0 Serum or plasma chloride measurement (moles/volume) 104 mmol/L 98-107 Carbon dioxide 21 mmol/L 21-32 Serum or plasma anion gap determination (moles/volume) 14 mmol/L 5-14 Serum or plasma urea nitrogen measurement (mass/volume ) 25 mg/dL 7-18 Serum or plasma creatinine measurement (mass/volume) 0.92 mg/dL 0.60-1.30 Serum or plasma urea nitrogen/creatinine mass ratio 27 NRG Serum or plasma creatinine measurement w ith calculation of estimated glomerular filtration rate > NRG Serum or plasma glucose measurement (mass/volume) 140 mg/dL 70-105 Serum or plasma calcium measurement (mass/volume) 9.6 mg/dL 8.5-10.1 Serum or plasma total bilirubin measurement (mass/volu me) 0.3 mg/dL 0.1-1.0 Serum or plasma alkaline phosphatase pat surement (enzymatic activity/volume) 44 U/L 40-136 Serum or plasma aspartate aminotransfera se measurement (enzymatic activity/volume) 17 U/L 5-34 Serum or plasma alanine aminotransferase measurement (enzymatic activity/volume) 13 U/L 0-55 Serum or plasma protein measurement (mass/volume) 6.4 g/dL 6.4-8.2 Serum or plasma albumin measurement (mass/volume) 3.9 g/dL 3.2-4.5 Magnesium - 11/24/17 19:15 Magnesium 2.1 mg/dL 1.8-2.4 Serum or plasma creatine kinase measurem ent (enzymatic activity/volume) - 11/24/17 19:15 Serum or plasma creatine kinase measurem ent (enzymatic activity/volume) 34 U/L 29-168 Serum or plasma creatine kinase MB measu rement (enzymatic activity/volume) - 11/24/17 19:15 Serum or plasma creatine kinase MB measu rement (enzymatic activity/volume) 0.6 ng/mL <6.6 Serum or plasma troponin i.cardiac measu rement (mass/volume) - 11/24/17 19:15 Serum or plasma troponin i.cardiac measurement (mass/v olume) < ng/mL <0.30 Serum or plasma lithium measurement (mol es/volume) - 11/24/17 19:15 BNP level 13.6 pg/mL <100.0 Serum or plasma amylase measurement (enz ymatic activity/volume) - 11/24/17 19:15 Serum or plasma amylase measurement (enzymatic activit y/volume) 40 U/L 25-125 Lipase - 11/24/17 19:15 Lipase 70 U/L 8-78 Serum or plasma thyrotropin measurement by detection limit <=0.05 miu/l (units/volume) - 11/24/17 19:15 Serum or plasma thyrotropin measurement by detection limit <=0.05 miu/l (units/volume) 1.37 u[iU]/mL 0.35-4.94 Serum or plasma troponin i.cardiac measu rement (mass/volume) - 11/25/17 00:55 Serum or plasma troponin i.cardiac measurement (mass/v olume) < ng/mL <0.30 Capillary blood glucose measurement by g lucometer (mass/volume) - 11/25/17 05:59 Capillary blood glucose measurement by glucometer (mas s/volume) 112 mg/dL 70-110 Blood CBC with ordered manual differenti al panel - 11/25/17 06:00 Blood leukocytes automated count (number/volume) 7.3 10*3/uL 4.3-11.0 Blood erythrocytes automated count (number/volume) 4.37 10*6/uL 4.35-5.85 Venous blood hemoglobin measurement (mass/volume) 13.6 g/dL 11.5-16.0 Blood hematocrit (volume fraction) 40 % 35-52 Automated erythrocyte mean corpuscular volume 92 [ foz_us] 80-99 Automated erythrocyte mean corpuscular h emoglobin (mass per erythrocyte) 31 pg 25-34 Automated erythrocyte mean corpuscular h emoglobin concentration measurement (mass/volume) 34 g/dL 32-36 Automated erythrocyte distribution width ratio 13. 6 % 10.0- 14.5 Automated blood platelet count (count/volume) 212 10*3/uL 130-400 Automated blood platelet mean volume measurement 10.2 [foz_us] 7.4-10.4 Automated blood neutrophils/100 leukocytes 49 % 42-75 Automated blood lymphocytes/100 leukocytes 37 % 12-44 Blood monocytes/100 leukocytes 7 % NRG Automated blood eosinophils/100 leukocytes 2 % 0-10 Automated blood basophils/100 leukocytes 1 % 0-10 Blood neutrophils automated count (number/volume) 3.6 10*3 1.8-7.8 Blood lymphocytes automated count (number/volume) 2.7 10*3 1.0-4.0 Blood monocytes automated count (number/volume) 0. 9 10*3 0.0-1.0 Automated eosinophil count 0.1 10*3/uL 0 .0-0.3 Automated blood basophil count (count/volume) 0.0 10*3/uL 0.0-0.1 Manual blood segmented neutrophils/100 leukocytes 52 % NRG Blood band neutrophils/100 leukocytes 0 % NRG Manual blood lymphocytes/100 leukocytes 39 % NRG Manual eosinophils/100 leukocytes in nose 2 % NRG Manual blood basophils/100 leukocytes 0 % NRG Blood toxic granules detection by light microscopy 1+ NRG Comprehensive metabolic panel - 11/25/17 06:00 Serum or plasma sodium measurement (moles/volume) 139 mmol/L 135-145 Serum or plasma potassium measurement (moles/volume) 4.2 mmol/L 3.6-5.0 Serum or plasma chloride measurement (moles/volume) 108 mmol/L 98-107 Carbon dioxide 22 mmol/L 21-32 Serum or plasma anion gap determination (moles/volume) 9 mmol/L 5-14 Serum or plasma urea nitrogen measurement (mass/volume ) 22 mg/dL 7-18 Serum or plasma creatinine measurement (mass/volume) 0.78 mg/dL 0.60-1.30 Serum or plasma urea nitrogen/creatinine mass ratio 28 NRG Serum or plasma creatinine measurement w ith calculation of estimated glomerular filtration rate > NRG Serum or plasma glucose measurement (mass/volume) 113 mg/dL 70-105 Serum or plasma calcium measurement (mass/volume) 8.8 mg/dL 8.5-10.1 Serum or plasma total bilirubin measurement (mass/volu me) 0.4 mg/dL 0.1-1.0 Serum or plasma alkaline phosphatase pat surement (enzymatic activity/volume) 38 U/L 40-136 Serum or plasma aspartate aminotransfera se measurement (enzymatic activity/volume) 16 U/L 5-34 Serum or plasma alanine aminotransferase measurement (enzymatic activity/volume) 14 U/L 0-55 Serum or plasma protein measurement (mass/volume) 5.7 g/dL 6.4-8.2 Serum or plasma albumin measurement (mass/volume) 3.4 g/dL 3.2-4.5 Serum or plasma troponin i.cardiac measu rement (mass/volume) - 11/25/17 06:00 Serum or plasma troponin i.cardiac measurement (mass/v olume) < ng/mL <0.30 Arterial blood gas measurement - 8 06:16 Blood pCO2 41 mm[Hg] 35-45 Blood pO2 75 mm[Hg] 79-93 Arterial blood bicarbonate measurement (moles/volume) 26 mmol/L 23-27 Arterial blood base excess by calculation 1.0 mmol /L -2.5-2.5 Arterial blood oxygen saturation measurement 96 % 94-100 * Inhaled oxygen flow rate RA NRG Arterial blood pH measurement with patient temperature correction 7.40 7.37-7.43 Arterial blood carbon dioxide, total measurement (mole s/volume) 26.9 mmol/L 21.0-31.0 Body site R RAD NRG Assessment of wrist artery patency prior to arterial p uncture YES-POS NRG Setting of ventilation mode NO NR G Measurement of body temperature 96.3 NRG Capillary blood glucose measurement by g lucometer (mass/volume) - 11/25/17 10:51 Capillary blood glucose measurement by glucometer (mas s/volume) 147 mg/dL 70-110 Complete blood count (CBC) with automate d white blood cell (WBC) differential - 05/24/19 18:03 Blood leukocytes automated count (number/volume) 8.2 10*3/uL 4.3-11.0 Blood erythrocytes automated count (number/volume) 4.80 10*6/uL 4.35-5.85 Venous blood hemoglobin measurement (mass/volume) 14.4 g/dL 11.5-16.0 Blood hematocrit (volume fraction) 44 % 35-52 Automated erythrocyte mean corpuscular volume 92 [ foz_us] 80-99 Automated erythrocyte mean corpuscular h emoglobin (mass per erythrocyte) 30 pg 25-34 Automated erythrocyte mean corpuscular h emoglobin concentration measurement (mass/volume) 33 g/dL 32-36 Automated erythrocyte distribution width ratio 14. 1 % 10.0- 14.5 Automated blood platelet count (count/volume) 224 10*3/uL 130-400 Automated blood platelet mean volume measurement 10.1 [foz_us] 7.4-10.4 Automated blood neutrophils/100 leukocytes 70 % 42-75 Automated blood lymphocytes/100 leukocytes 21 % 12-44 Blood monocytes/100 leukocytes 8 % 0-12 Automated blood eosinophils/100 leukocytes 1 % 0-10 Automated blood basophils/100 leukocytes 1 % 0-10 Blood neutrophils automated count (number/volume) 5.7 10*3 1.8-7.8 Blood lymphocytes automated count (number/volume) 1.7 10*3 1.0-4.0 Blood monocytes automated count (number/volume) 0. 7 10*3 0.0-1.0 Automated eosinophil count 0.1 10*3/uL 0 .0-0.3 Automated blood basophil count (count/volume) 0.1 10*3/uL 0.0-0.1 Comprehensive metabolic panel - 05/24/19 18:03 Serum or plasma sodium measurement (moles/volume) 140 mmol/L 135-145 Serum or plasma potassium measurement (moles/volume) 4.2 mmol/L 3.6-5.0 Serum or plasma chloride measurement (moles/volume) 106 mmol/L 98-107 Carbon dioxide 24 mmol/L 21-32 Serum or plasma anion gap determination (moles/volume) 10 mmol/L 5-14 Serum or plasma urea nitrogen measurement (mass/volume ) 24 mg/dL 7-18 Serum or plasma creatinine measurement (mass/volume) 0.95 mg/dL 0.60-1.30 Serum or plasma urea nitrogen/creatinine mass ratio 25 NRG Serum or plasma creatinine measurement w ith calculation of estimated glomerular filtration rate 59 NRG Serum or plasma glucose measurement (mass/volume) 122 mg/dL 70-105 Serum or plasma calcium measurement (mass/volume) 8.8 mg/dL 8.5-10.1 Serum or plasma total bilirubin measurement (mass/volu me) 0.2 mg/dL 0.1-1.0 Serum or plasma alkaline phosphatase pat surement (enzymatic activity/volume) 54 U/L 40-136 Serum or plasma aspartate aminotransfera se measurement (enzymatic activity/volume) 25 U/L 5-34 Serum or plasma alanine aminotransferase measurement (enzymatic activity/volume) 25 U/L 0-55 Serum or plasma protein measurement (mass/volume) 6.1 g/dL 6.4-8.2 Serum or plasma albumin measurement (mass/volume) 3.8 g/dL 3.2-4.5 CALCIUM CORRECTED 9.0 mg/dL 8.5-10.1 Serum or plasma amylase measurement (enz ymatic activity/volume) - 05/24/19 18:03 Serum or plasma amylase measurement (enzymatic activit y/volume) 40 U/L 25-125 Lipase - 05/24/19 18:03 Lipase 48 U/L 8-78 Complete urinalysis with reflex to cultu re - 05/24/19 18:13 Urine color determination YELLOW NRG Urine clarity determination CLEAR NR G Urine pH measurement by test strip 7.0 5-9 Specific gravity of urine by test strip 1.015 1.016-1.022 Urine protein assay by test strip, semi-quantitative NEGATIVE NEGATIVE Urine glucose detection by automated test strip NE GATIVE NEGATIVE Erythrocytes detection in urine sediment by light micr oscopy NEGATIVE NEGATIVE Urine ketones detection by automated test strip NE GATIVE NEGATIVE Urine nitrite detection by test strip NEGATIVE NEGATIVE Urine total bilirubin detection by test strip NEGA TIVE NEGATIVE Urine urobilinogen measurement by automated test strip (mass/volume) 0.2 mg/dL < = 1.0 Urine leukocyte esterase detection by dipstick 1+ NEGATIVE Automated urine sediment erythrocyte cou nt by microscopy (number/high power field) NONE NRG Automated urine sediment leukocyte count by microscopy (number/high power field) [HPF] NRG Bacteria detection in urine sediment by light microsco py TRACE NRG Crystals detection in urine sediment by light microsco py NONE NRG Casts detection in urine sediment by light microscopy NONE NRG Mucus detection in urine sediment by light microscopy NEGATIVE NRG Complete urinalysis with reflex to culture YES NRG Bacterial urine culture - 05/24/19 18:13 Bacterial urine culture NG NRG C DIFFICILE AG + TOXIN A/B. - 05/25/19 1 5:20 RESULTS NEGATIVE FOR ANTIGEN AND TOXIN A/B NRG [id number] - 05/25/19 15:20 Stool bacteria identification by culture - 05/25/19 15:20 Encounters ACCT No. Visit Date/Time Discharge Status Pt. Type Provider Facility Loc./Unit Complaint [id number] 06/21/2019 14:57:00 020 23:59:59 CLS Outpatient FABIANO LING, PAMELA [facility] RAD RUQ PAIN [id number] 05/25/2019 15:16:00 019 23:59:59 CLS Outpatient FLAQUITO LING, TAYE H [facility] LABNPT [id number] 05/24/2019 16:50:00 019 20:13:00 DIS Emergency ONEL, GILBERT [facility] ER ABD PAIN, DIARRHEA [id number] 11/24/2017 21:33:00 018 12:06:00 DIS Inpatient BAR MEDINA DO, [facility] ICU PALPITATIONS;HX OF INTE RMITTENT ATRIAL FIB;BIGEM- [id number] 08/18/2017 09:53:00 018 23:59:59 CLS Outpatient BENJIE LING, TA Ortega [facility] CARD AF [id number] 02/23/2017 03:56:00 017 05:40:00 DIS Emergency SHERI GLASS DO [facility] ER ABD PAIN,RT SIDE TO MITCHELL K,POSS KIDNEY STONES [id number] 01/11/2017 12:52:00 017 23:59:59 CLS Preadmit [facility] RAD R51 [id number] 12/31/2016 11:01:00 23:59:59 CLS Outpatient [facility] RAD HEAD INJURY DUE TO TRAUMA [id number] 12/15/2016 10:30:00 23:59:59 CLS Preadmit LELAND BIRD [facility] CARD AF I48.0,E11.9 [id number] 11/09/2016 11:15:00 23:59:59 CLS Preadmit [facility] RAD SCREENING [id number] 10/27/2016 13:04:00 23:59:59 CLS Outpatient JONNY DPM, RAHEL Q [facility] LAB EDEMA,PAIN [id number] 06/18/2016 14:31:00 016 23:59:59 CLS Outpatient [facility] LAB COUGH,CHEST CONGESTION [id number] 04/07/2016 11:43:00 016 23:59:59 CLS Outpatient MECCA BIRD [facility] CARD AF,HLP,HTN, OBESTIY [id number] 03/01/2016 12:15:00 016 23:59:59 CLS Outpatient MECCA BIRD [facility] CARD AF,HLP,HTN, OBESITY [id number] 02/14/2016 13:15:00 016 14:15:00 DIS Outpatient JESSI CASTRO DO [facility] SDC APPENDECTOMY [id number] 02/04/2016 09:22:00 23:59:59 CLS Outpatient MECCA BIRD [facility] LAB A FIB, HDL, HTN,OBESITY [id number] 06/26/2015 16:39:00 016 15:45:00 DIS Inpatient BAR MEDINA DO, [facility] 4TH ACUTE PYELONEPHRITIS,SE PSIS,H/O DM,VOLUME DEPLETIO [id number] 08/27/2013 21:05:00 014 22:00:00 DIS Emergency SHERI GLASS DO [facility] ER AFIB WITH RVR [id number] 04/27/2013 08:28:00 23:59:59 CLS Outpatient SANAM ALEXANDRE [facility] RAD ABNORMAL MAMMO [id number] 04/11/2013 11:01:00 23:59:59 CLS Outpatient SANAM ALEXANDRE [facility] RAD SCREENING [id number] 12/20/2019 12:38:[address] Emergency MASHA EVERETT APRN [facility] ER N/V [id number] 11/06/2015 14:01:00 Document Registration [id number] 10/08/2012 13:51:00 Document Registration [id number] 09/23/2011 13:51:00 Document Registration [id number] 03/09/2011 10:00:00 Document Registration [id number] 12/10/2010 11:00:00 Document Registration [id number] 12/08/2010 10:12:00 Document Registration
[2019-12-20 13:09] LABS: POTASSIUM 3.9 MMOL/L (3.6-5.0)
[2019-12-20 13:10] LABS: CALCIUM 9.7 MG/DL (8.5-10.1)
[2019-12-20 13:11] LABS: TOTAL PROTEIN 6.6 GM/DL (6.4-8.2)
[2019-12-20 13:13] LABS: BILIRUBIN,TOTAL 0.5 MG/DL (0.1-1.0)
--- NOTE | 2019-12-20 13:14 | NUR ---
Attempted to call to update; no answer.
[2019-12-20 13:15] LABS: CREATININE SERUM 1.33 MG/DL (0.60-1.30)
--- NOTE | 2019-12-20 14:00 | Diagnostic Imaging Report ---
PROCEDURE: CT abdomen and pelvis without contrast. TECHNIQUE: Multiple contiguous axial images were obtained through the abdomen and pelvis without the use of intravenous contrast. Auto Exposure Controls were utilized during the CT exam to meet ALARA standards for radiation dose reduction. INDICATION: Diarrhea and vomiting. COMPARISON: Correlation is made with prior CT from 06/21/2019. FINDINGS: The lung bases are clear. The gallbladder is surgically absent. No focal liver abnormality is identified. No biliary ductal dilatation is seen. The pancreas and spleen are unremarkable. No definite adrenal or renal abnormality is seen. There are no calculi or hydronephrosis. Aorta is calcified but nonaneurysmal. There does appear to be a long segment of wall thickening involving the descending colon. Mild adjacent inflammatory stranding is present as well and findings are suggestive of nonspecific colitis. There is diverticulosis of the sigmoid but no evidence of acute diverticulitis. The bladder is decompressed. The uterus is surgically absent. No free fluid is detected. There is a probable cyst in the right adnexa measuring 3.9 cm. IMPRESSION: Findings suggestive of nonspecific colitis involving the descending colon. No bowel obstruction, free air, or abscess formation is identified. Dictated by: Dictated on workstation # [id number]
--- NOTE | 2019-12-20 14:18 | NUR ---
Attempted to call to update; no answer.
[2019-12-20 14:27] LABS: BILIRUBIN,URINE NEGATIVE (NEGATIVE); CLARITY,URINE CLEAR; COLOR,URINE YELLOW; GLUCOSE, URINE (UA) NEGATIVE (NEGATIVE); KETONES,URINE NEGATIVE (NEGATIVE); LEUKOCYTE ESTERASE ,URINE TRACE (NEGATIVE); NITRITE,URINE NEGATIVE (NEGATIVE); PH,URINE 6.5 (5-9); PROTEIN,URINE 3+ (NEGATIVE)
[2019-12-20 14:35] LABS: BACTERIA,URINE FEW /HPF
[2019-12-20] MEDS ORDERED: CEFU250T80 PO (14:48)
[2019-12-20] MEDS ORDERED: SULF1TAB35 PO (15:17)
[2019-12-20] MEDS ORDERED: METR500T PO (15:17)
[2019-12-20 15:28] VITALS: BP 142/73
== END 2019-12-20 15:15 | disposition home or self-care (01) ==
LOC: EDUNIT# 12:36 → ER 12:38
DX: K52.9 Noninfective gastroenteritis and colitis, unspecified (principal); N39.0 Urinary tract infection, site not specified; G47.30 Sleep apnea, unspecified; I48.91 Unspecified atrial fibrillation; E78.00 Pure hypercholesterolemia, unspecified; I10 Essential (primary) hypertension; G43.909 Migraine, unspecified, not intractable, without status migrainosus; K21.9 Gastro-esophageal reflux disease without esophagitis; R29.6 Repeated falls; E66.01 Morbid (severe) obesity due to excess calories; E11.9 Type 2 diabetes mellitus without complications; F41.9 Anxiety disorder, unspecified; F31.9 Bipolar disorder, unspecified; Z99.3 Dependence on wheelchair; Z79.899 Other long term (current) drug therapy; Z79.84 Long term (current) use of oral hypoglycemic drugs; Z79.82 Long term (current) use of aspirin; Z88.5 Allergy status to narcotic agent; Z68.42 Body mass index [BMI] 45.0-49.9, adult
CPT/HCPCS: 36415; 51701; 74176; 80053; 81000; 85025; 87088; 96360

== ENCOUNTER → 2021-06-03 | Outpatient (CLI) | payer MEDICARE, OTHER ==
[~2021-06-03] MED LIST changes: +CATHETER FLUSH 10 ML SYR IV PRN; +CEFU250T80 PO; -LISI-552 PO; +LISI20TA26 PO; -POTA99TA21 PO; +POTA99TA26 PO; +REGADENOSON 0.4 MG/5 ML SYR (LEXISCAN) IV ONE; +SULF1TAB38 PO
[2021-06-03 13:29] VITALS: BP 143/79
--- NOTE | 2021-06-03 15:20 | Cardiology Stress Test Report ---
Stress Test Report Date of Procedure/Referring: Date of Procedure: Jun 03, 2021 PCP Ta Norman MD Admitting Physician Center/[facility] Indications: CP Baseline Heart Rate: 72 Baseline Blood Pressure: Blood Pressure Systolic: 143 Blood Pressure Diastolic: 79 Baseline Vitals Vital Signs Date Time Temp Pulse Resp B/P (MAP) Pulse Ox O2 Delivery O2 Flow Rate FiO2 06/03/21 13:29 74 16 143/79 (100) 97 Room Air Baseline EKG: Baseline EKG: NSR Summary After explaining the procedure to the patient, she signed a consent and then brought to the stress nuclear laboratory. Patient received 0.4 mg Lexiscan for stress test, ECG, heart rate and blood pressure were monitored continuously. Resting and stress dose of radio tracer were injected, imaging was acquired and reviewed in short axis, horizontal long axis and vertical long axis views. TID: 0.99 SSS: 7 SDS: 5 EF: 65 1. Patient tolerated Lexiscan well 2. Diaphragmatic attenuation affecting the quality of the study, extracardiac attenuation, there is no significant ischemia or infarction on SPECT images 3. Normal left ventricular size, EF 65% TA NORMAN MD Jun 03, 2021 15:20
== END ==
LOC: CARD 11:30
PROVIDERS: ATTEND Internal Medicine Cardiovascular Disease
DX: I35.1 Nonrheumatic aortic (valve) insufficiency (principal); I11.9 Hypertensive heart disease without heart failure; I25.10 Atherosclerotic heart disease of native coronary artery without angina pectoris
CPT/HCPCS: 78452; 93017; 93306; A9502